=== PATIENT | female | born 1960 | race Caucasian/White ===

== ENCOUNTER 2016-07-17 21:12 | Inpatient (IN) | payer OTHER ==
[2016-07-17] MEDS ORDERED: IPRATROPIUM-ALBUTEROL 3 ML NEB INHALATION STA (21:18)
[2016-07-17] MEDS ORDERED: SODIUM CHLORIDE 0.9% 1,000 ML IV STA (21:18)
--- NOTE | 2016-07-17 21:21 | ED ---
General Adult HPI - General Chief complaint: Shortness of Breath Stated complaint: SOB Time Seen by Provider: 07/17/16 21:14 Source: patient, family, EMS, RN notes reviewed Mode of arrival: EMS Limitations: no limitations - History of Present Illness Initial comments: Patient is a pleasant 5-year-old female presenting to the emergency department with difficulty in breathing. Patient had an onset of symptoms was 2 week ago. Patient has had cough with some yellow sputum. Dyspnea increased cardioverted today. Symptoms are similar to previous COPD. Patient did have 2 treatments in route as well as Solu-Medrol. No chest pain. Patient has had subjective fevers however when checked it has not shown fever. No leg pain or leg swelling. - Related Data Home Medications Medication Instructions Recorded Confirmed Levothyroxine Sodium [Synthroid] 50 mcg PO DAILY 12/04/15 07/17/16 Albuterol Inhaler [Ventolin Hfa 2 puff INHALATION RT-Q4H PRN 07/17/16 07/17/16 Inhaler] Albuterol Nebulized [Ventolin 2.5 mg INHALATION RT-QID 07/17/16 07/17/16 Nebulized] Azithromycin [Zithromax Z-pack] See Taper PO DAILY 07/17/16 07/17/16 Budesonide [Pulmicort] 1 mg INHALATION RT-BID 07/17/16 07/17/16 Ipratropium Nebulized [Atrovent 0.5 mg INHALATION RT-QID 07/17/16 07/17/16 Nebulized] predniSONE 5 mg PO DAILY 07/17/16 07/17/16 predniSONE See Taper PO DAILY 07/17/16 07/17/16 Previous Rx's Medication Instructions Recorded ALPRAZolam [Xanax] 0.25 mg PO TID PRN #20 tab 12/06/15 Allergies Allergy/AdvReac Type Severity Reaction Status Date / Time amoxicillin AdvReac Unknown Verified 07/17/16 22:00 Childhood erythromycin base AdvReac Unknown Verified 07/17/16 22:00 Childhood Review of Systems ROS Statement: Those systems with pertinent positive or pertinent negative responses have been documented in the HPI. ROS Other: All systems not noted in ROS Statement are negative. Constitutional: Reports: fever (Subjective) Eyes: Denies: eye pain ENT: Denies: ear pain Respiratory: Reports: cough, dyspnea Cardiovascular: Denies: chest pain Endocrine: Reports: fatigue Gastrointestinal: Denies: abdominal pain Genitourinary: Denies: dysuria Musculoskeletal: Denies: back pain Skin: Denies: rash Neurological: Denies: weakness Past Medical History Past Medical History: COPD History of Any Multi-Drug Resistant Organisms: None Reported Past Surgical History: Appendectomy, Hysterectomy, Tonsillectomy Past Psychological History: No Psychological Hx Reported Smoking Status: Current every day smoker Past Alcohol Use History: None Reported Past Drug Use History: None Reported - Past Family History Father Family Medical History: Renal Disease General Exam Limitations: no limitations General appearance: alert Head exam: Present: atraumatic Eye exam: Present: normal appearance, PERRL ENT exam: Present: normal oropharynx Neck exam: Present: normal inspection Respiratory exam: Present: respiratory distress, wheezes, accessory muscle use Cardiovascular Exam: Present: tachycardia Expanded Peripheral pulses: 2+: Radial (R), Radial (L), Dorsalis Pedis (R), Dorsalis Pedis (L) GI/Abdominal exam: Present: soft. Absent: tenderness Extremities exam: Present: normal inspection. Absent: pedal edema, calf tenderness Neurological exam: Present: alert Psychiatric exam: Present: normal affect, normal mood Skin exam: Absent: rash Course Vital Signs 07/17/16 07/17/16 07/17/16 21:14 21:18 21:24 Temperature 98.2 F Pulse Rate 112 H 115 H Respiratory 26 H 24 24 Rate Blood Pressure 175/92 O2 Sat by Pulse 93 L 96 Oximetry 07/17/16 07/17/16 07/17/16 21:25 21:39 21:49 Temperature Pulse Rate 112 H 104 H 103 H Respiratory 24 20 Rate Blood Pressure 138/63 129/60 O2 Sat by Pulse 96 97 Oximetry 07/17/16 07/17/16 21:51 22:07 Temperature 98 F Pulse Rate 102 H 113 H Respiratory 24 Rate Blood Pressure 128/62 O2 Sat by Pulse 97 Oximetry EKG Findings - EKG Comments: EKG Findings:: Sinus tachycardia 113. NC 120. QRS 80. QT 324. QTC 444. Normal axis. Q wave in lead V1 and V2. No acute ST change. Medical Decision Making - Medical Decision Making Patient reexamined and improved. Patient is breathing comfortably on BiPAP. Patient does have continued decreased air exchange with mild wheezing. Case discussed in detail with practitioner Estefanía rankin, covering for Dr. Wheat, who will admit for Dr. Fleming. - Lab Data Result diagrams: 07/17/16 21:21 07/17/16 21:21 Lab Results 07/17/16 07/17/16 Range/Units 21:21 21:21 WBC 9.9 (3.8-10.6) k/uL RBC 4.53 (3.80-5.40) m/uL Hgb 14.7 (11.4-16.0) gm/dL Hct 45.3 (34.0-46.0) % MCV 100.0 (80.0-100.0) fL MCH 32.5 (25.0-35.0) pg MCHC 32.5 (31.0-37.0) g/dL RDW 13.1 (11.5-15.5) % Plt Count 337 (150-450) k/uL Neutrophils % 71 % Lymphocytes % 19 % Monocytes % 7 % Eosinophils % 0 % Basophils % 0 % Neutrophils # 7.1 (1.3-7.7) k/uL Lymphocytes # 1.9 (1.0-4.8) k/uL Monocytes # 0.7 (0-1.0) k/uL Eosinophils # 0.0 (0-0.7) k/uL Basophils # 0.0 (0-0.2) k/uL Sodium 144 (137-145) mmol/L Potassium 4.4 (3.5-5.1) mmol/L Chloride 106 (98-107) mmol/L Carbon Dioxide 28 (22-30) mmol/L Anion Gap 10 mmol/L BUN 12 (7-17) mg/dL Creatinine 0.60 (0.52-1.04) mg/dL Est GFR (MDRD) Af Amer >60 (>60 ml/min/1.73 sqM) Est GFR (MDRD) Non-Af >60 (>60 ml/min/1.73 sqM) Glucose 103 H (74-99) mg/dL Calcium 9.1 (8.4-10.2) mg/dL Total Bilirubin 0.3 (0.2-1.3) mg/dL AST 30 (14-36) U/L ALT 39 (9-52) U/L Alkaline Phosphatase 73 (38-126) U/L Total Protein 7.2 (6.3-8.2) g/dL Albumin 4.3 (3.5-5.0) g/dL - Radiology Data Radiology results: image reviewed (Chest x-ray shows no acute process) Critical Care Time Critical Care Time: Yes Total Critical Care Time: 33 Disposition Clinical Impression: Acute exacerbation of chronic obstructive airways disease, Acute respiratory failure Disposition: ADMITTED IP TO THIS [facility] Condition: Serious Time of Disposition: 22:32
[2016-07-17 21:30] LABS: Basophils % (A) 0 %; CH 32.6; CHCM 32.8; Eosinophils % (A) 0 %; HCT 45.3 % (34.0-46.0); HDW 2.15; HGB 14.7 gm/dL (11.4-16.0); Luc # (Auto) 0.26; Luc % (Auto) 3; Lymphocytes # (A) 1.9 k/uL (1.0-4.8); Lymphocytes % (A) 19 %; MCH 32.5 pg (25.0-35.0); MCHC 32.5 g/dL (31.0-37.0); Monocytes # (A) 0.7 k/uL (0-1.0); Monocytes % (A) 7 %; Neutrophils # (A) 7.1 k/uL (1.3-7.7); Neutrophils % (A) 71 %; RBC 4.53 m/uL (3.80-5.40); RDW 13.1 % (11.5-15.5); WBC 9.9 k/uL (3.8-10.6); WBC (Perox) 9.17
[2016-07-17 21:41] LABS: ALT 39 U/L (9-52); AST 30 U/L (14-36); Alkaline Phosphatase 73 U/L (38-126); Anion Gap 10 mmol/L; Blood Urea Nitrogen 12 mg/dL (7-17); Calcium 9.1 mg/dL (8.4-10.2); Carbon Dioxide 28 mmol/L (22-30); Chloride 106 mmol/L (98-107); Glucose 103 mg/dL (74-99); Non-African American GFR(MDRD) >60 (>60 ml/min/1.73 sqM); Potassium 4.4 mmol/L (3.5-5.1); Sodium 144 mmol/L (137-145); Total Bilirubin 0.3 mg/dL (0.2-1.3); Total Protein 7.2 g/dL (6.3-8.2)
--- NOTE | 2016-07-17 21:45 | XR ---
EXAMINATION TYPE: XR chest 1V portable DATE OF EXAM: 07/17/2016 9:37 PM COMPARISON: Prior chest x-ray January 20, 2016 HISTORY: Dyspnea TECHNIQUE: Single AP portable frontal upright view of the chest is obtained. FINDINGS: Moderate underlying emphysematous change is felt present. There is no focal air space opac ity, pleural effusion, or pneumothorax seen. The cardiac silhouette size is within normal limits. The osseous structures are somewhat demineralized. IMPRESSION: Underlying emphysematous change without acute pulmonary process.
[2016-07-17] MEDS: IPRATROPIUM-ALBUTEROL 3 ML NEB INHALATION PRN (23:53)
[2016-07-18] MEDS: methylPREDNISolone SOD SUCCI 125 MG/2 ML VIAL IV SCH ×4 (02:37→17:19)
[2016-07-18] MEDS: IPRATROPIUM-ALBUTEROL 3 ML NEB INHALATION PRN ×2 (03:21→23:55)
[2016-07-18] MEDS: SODIUM CHLORIDE 0.9% 1,000 ML IV SCH ×2 (06:41→12:12)
[2016-07-18] MEDS: IPRATROPIUM-ALBUTEROL 3 ML NEB INHALATION SCH ×4 (07:55→20:22)
[2016-07-18] MEDS ORDERED: INSULIN LISPRO (humaLOG) 300 UNIT/3 ML VIAL SQ ONE ×2 (09:03→21:34)
[2016-07-18] MEDS ORDERED: ACETAMINOPHEN TAB 325 MG TAB PO PRN (09:09)
[2016-07-18] MEDS: LEVOTHYROXINE 50 MCG TAB PO SCH (09:10)
[2016-07-18] MEDS: FAMOTIDINE 20 MG TAB PO SCH ×2 (09:10→20:03)
[2016-07-18] MEDS: HEPARIN SODIUM,PORCINE 5,000 UNIT/ML 1 ML VIAL SQ SCH ×2 (09:10→20:02)
[2016-07-18] MEDS: ALPRAZolam 0.25 MG TAB PO PRN ×2 (09:11→21:16)
[2016-07-18] MEDS: LEVOFLOXACIN 500 MG TAB PO SCH (09:40)
[2016-07-18] MEDS: IBUPROFEN 400 MG TAB PO PRN ×2 (09:41→20:02)
[2016-07-18 12:40] LABS: Glucose,Whole Blood 218 mg/dL (75-99)
[2016-07-18] MEDS: INSULIN LISPRO (humaLOG) 300 UNIT/3 ML VIAL SQ SCH ×3 (12:59→21:40)
[2016-07-18 13:48] LABS: Hemoglobin A1C 5.8 % (4.2-6.1)
--- NOTE | 2016-07-18 15:14 | P.HPIM ---
History of Present Illness H&P Date: 07/18/16 Chief Complaint: Shortness of breath Patient is a 55-year-old female, patient of Dr. Fleming in the outpatient setting, with medical history significant for COPD, asthma, and hypothyroidism. Patient states she's been dealing with bronchitis for the last couple weeks prior to admission and saw Dr. Fleming in the office on where she was placed on Zithromax. Patient states that over the last couple of days she has become increasingly short of breath despite using her inhalers. Patient presented to the emergency department with difficulty breathing. Patient was provided nebulized updrafts in route 2 as well as Solu-Medrol. Patient states she's been feeling hot but no recorded temperatures. Patient denies chills, nausea, vomiting, chest pain, abdominal pain, leg swelling, numbness or tingling, urinary frequency, dysuria, hematuria. Patient denies constipation or diarrhea. Chest x-ray and emergency department with evidence of underlying emphysematous change without acute pulmonary process. Patient was noted to be short of breath with tachypnea and hypertensive in the emergency department. Patient was placed on BiPAP and started on Levaquin. Patient was admitted to the medical floor with consult to Dr. Block from pulmonary service. Upon examination, patient is feeling better. Patient states she still gets short of breath with minimal activity but reports breathing a lot better than yesterday. Patient has mostly nonproductive cough. Denies chills, fevers, nausea, vomiting, chest pain, abdominal pain, leg pain. Patient is up ambulating to the bathroom. Urinating without difficulty. Patient is tolerating diet. Patient is currently on 2 L nasal cannula with oxygen saturation 95%. Past Medical History Past Medical History: Asthma, COPD, Thyroid Disorder History of Any Multi-Drug Resistant Organisms: None Reported Past Surgical History: Appendectomy, Hysterectomy, Tonsillectomy Additional Past Anesthesia/Blood Transfusion Reaction / Comment(s): Patient states she had problems with anesthesia in 1965, states ether was used and she had altered mental status. Past Psychological History: Anxiety Smoking Status: Current every day smoker Past Alcohol Use History: None Reported Past Drug Use History: None Reported - Past Family History Father Family Medical History: Renal Disease Mother Family Medical History: Congestive Heart Failure (CHF), Myocardial Infarction ( [place]) Medications and Allergies Home Medications Medication Instructions Recorded Confirmed Type Levothyroxine Sodium [Synthroid] 50 mcg PO DAILY 12/04/15 07/17/16 History Albuterol Inhaler [Ventolin Hfa 2 puff INHALATION RT-Q4H PRN 07/17/16 07/17/16 History Inhaler] Albuterol Nebulized [Ventolin 2.5 mg INHALATION RT-QID 07/17/16 07/17/16 History Nebulized] Azithromycin [Zithromax Z-pack] See Taper PO DAILY 07/17/16 07/17/16 History Budesonide [Pulmicort] 1 mg INHALATION RT-BID 07/17/16 07/17/16 History Ipratropium Nebulized [Atrovent 0.5 mg INHALATION RT-QID 07/17/16 07/17/16 History Nebulized] predniSONE 5 mg PO DAILY 07/17/16 07/17/16 History predniSONE See Taper PO DAILY 07/17/16 07/17/16 History Allergies Allergy/AdvReac Type Severity Reaction Status Date / Time amoxicillin AdvReac Unknown Verified 07/17/16 22:00 Childhood erythromycin base AdvReac Unknown Verified 07/17/16 22:00 Childhood Physical Exam Vitals: Vital Signs Temp Pulse Pulse Pulse Resp BP BP 07/18/16 11:39 100 07/18/16 11:28 104 H 07/18/16 08:10 100 07/18/16 08:00 88 07/18/16 07:55 100 07/18/16 07:00 97.2 F L 101 H 18 132/77 07/18/16 03:33 100 07/18/16 03:21 96 07/18/16 00:27 96.8 F L 108 H 20 07/18/16 00:09 88 07/17/16 23:54 96 07/17/16 23:10 97.6 F 109 H 20 122/59 BP Pulse Ox 07/18/16 11:39 07/18/16 11:28 07/18/16 08:10 07/18/16 08:00 07/18/16 07:55 95 07/18/16 07:00 94 L 07/18/16 03:33 07/18/16 03:21 07/18/16 00:27 123/78 94 L 07/18/16 00:09 07/17/16 23:54 94 L 07/17/16 23:10 97 Intake and Output 07/18/16 07/18/16 07/18/16 06:59 14:59 22:59 Intake Total 540 Balance 540 Intake: Oral 540 Other: Voiding Method Toilet Bedside Commode # Voids 1 1 # Bowel Movements 0 Weight 42.411 kg GENERAL: Pt awake and alert, thin, in no acute distress. HEAD: Atraumatic, normocephalic. EYES: Pupils equal, round, and reactive to light, extraocular movements intact, sclera anicteric, conjunctiva are normal. ENT: Oropharynx clear without exudates. Moist mucous membranes. NECK: Supple without lymphadenopathy or JVD. LUNGS: Breath sounds diminished to auscultation bilaterally. No wheezes, rales , or rhonchi. HEART: Heart S1, S2, no S3 or S4. Regular rate and rhythm. No murmurs, rubs or gallops. ABDOMEN: Soft, nontender, nondistended, normoactive bowel sounds. No guarding, no rebound. No masses or organomegaly appreciated. EXTREMITIES: 2+ peripheral pulses. No edema, clubbing or cyanosis. No calf tenderness. NEUROLOGICAL: Pt oriented x 3. Cranial nerves II through XII grossly intact. Strength and sensation grossly intact. PSYCH: Normal mood, normal affect. SKIN: Warm, dry, intact. Normal turgor. No rashes or lesions. Results CBC & Chem 7: 07/17/16 21:21 07/17/16 21:21 Labs: Abnormal Lab Results - Last 24 Hours (Table) 07/18/16 Range/Units 12:29 POC Glucose (mg/dL) 218 H (75-99) mg/dL Chest x-ray: report reviewed Thrombosis Risk Factor Assmnt - DVT/VTE Prophylaxis DVT/VTE Prophylaxis: Pharmacologic Prophylaxis ordered - Choose All That Apply Any of the Below Risk Factors Present?: Yes Each Factor Represents 1 point: Abnormal pulmonary function (COPD), Age 41-60 years Other Risk Factors: No Other congenital or acquired thrombophilia - If yes, enter type in comment: No Thrombosis Risk Factor Assessment Total Risk Factor Score: 2 Thrombosis Risk Factor Assessment Level: Low Risk Assessment and Plan Plan: Impression: 1. Exacerbation of COPD. 2. Acute hypoxic respiratory failure suspected secondary to exacerbation of COPD. 3. History of asthma, mild. 4. Hypothyroidism. 5. Anxiety, stable. 6. Nicotine dependence. Plan: Continue monitor patient. Continue supplemental oxygen to keep oxygen saturation greater than 92%. Continue nebulized updraft treatments, inhaled and IV steroids, antibiotics, and IV hydration. Continue GI and DVT prophylaxis. Her medications been reviewed and resumed. Continue to follow with pulmonary service. Repeat CBC and BMP in a.m. The above impression and plan have been discussed and directed by Dr Fleming. Albert HORN acting as scribe for Dr. Fleming.
[2016-07-18 15:21] VITALS: BMI 17.6
[2016-07-18 17:06] LABS: Glucose,Whole Blood 105 mg/dL (75-99)
--- NOTE | 2016-07-18 17:34 | P.CNPUL ---
History of Present Illness Consult date: 07/18/16 Requesting physician: Shar Fleming Reason for consult: COPD Chief complaint: Shortness of breath, cough, and wheezing. History of present illness: This is a 55-year-old female with history of severe end-stage COPD, usually sees Dr. Salinas in the office, patient is O2 dependent and she is maintained on prednisone for her underlying COPD. She saw her primary care physician recently with symptoms of cough and shortness of breath, and she was placed on Zithromax. Over the last couple of days, her pulmonary status seems to have deteriorated. Patient was using her nebulizers more frequently, she has been developing even shortness of breath after the use of her nebulizer. She has been experiencing more shortness of breath cough and wheezing. Presented to the ER, her chest x-ray showed no evidence of infiltrate. Patient was treated initially with BiPAP, and placed on Levaquin. At the time of my evaluation, the patient was already feeling a bit improved. I reviewed the list of her medications, and she seems to be on appropriate course of bronchodilators and steroids as well as antibiotics. I also reviewed the chest x-ray, no evidence of pneumonia noted. Patient denies any fever no chills no hemoptysis. No nausea no vomiting no abdominal pain no melena no hematemesis is no dysuria and no frequency no urgency. Her symptoms are mostly pulmonary in nature. Review of Systems 14 point review of systems were obtained, please refer to pertinent positives and negatives in HPI. Past Medical History Past Medical History: Asthma, COPD, Thyroid Disorder History of Any Multi-Drug Resistant Organisms: None Reported Past Surgical History: Appendectomy, Hysterectomy, Tonsillectomy Additional Past Anesthesia/Blood Transfusion Reaction / Comment(s): Patient states she had problems with anesthesia in 1965, states ether was used and she had altered mental status. Past Psychological History: Anxiety Smoking Status: Current every day smoker Past Alcohol Use History: None Reported Past Drug Use History: None Reported - Past Family History Father Family Medical History: Renal Disease Mother Family Medical History: Congestive Heart Failure (CHF), Myocardial Infarction ( [place]) Medications and Allergies Home Medications Medication Instructions Recorded Confirmed Type Levothyroxine Sodium [Synthroid] 50 mcg PO DAILY 12/04/15 07/17/16 History Albuterol Inhaler [Ventolin Hfa 2 puff INHALATION RT-Q4H PRN 07/17/16 07/17/16 History Inhaler] Albuterol Nebulized [Ventolin 2.5 mg INHALATION RT-QID 07/17/16 07/17/16 History Nebulized] Azithromycin [Zithromax Z-pack] See Taper PO DAILY 07/17/16 07/17/16 History Budesonide [Pulmicort] 1 mg INHALATION RT-BID 07/17/16 07/17/16 History Ipratropium Nebulized [Atrovent 0.5 mg INHALATION RT-QID 07/17/16 07/17/16 History Nebulized] predniSONE 5 mg PO DAILY 07/17/16 07/17/16 History predniSONE See Taper PO DAILY 07/17/16 07/17/16 History Allergies Allergy/AdvReac Type Severity Reaction Status Date / Time amoxicillin AdvReac Unknown Verified 07/17/16 22:00 Childhood erythromycin base AdvReac Unknown Verified 07/17/16 22:00 Childhood Physical Exam Vitals: Vital Signs Temp Pulse Pulse Pulse Pulse Resp BP 07/18/16 16:55 100 07/18/16 16:44 100 07/18/16 15:00 97.4 F L 107 H 18 07/18/16 11:39 100 07/18/16 11:28 104 H 07/18/16 08:10 100 07/18/16 08:00 88 07/18/16 07:55 100 07/18/16 07:00 97.2 F L 101 H 18 07/18/16 03:33 100 07/18/16 03:21 96 07/18/16 00:27 96.8 F L 108 H 20 07/18/16 00:09 88 07/17/16 23:54 96 07/17/16 23:10 97.6 F 109 H 20 122/59 BP BP BP Pulse Ox 07/18/16 16:55 07/18/16 16:44 07/18/16 15:00 150/85 93 L 07/18/16 11:39 07/18/16 11:28 07/18/16 08:10 07/18/16 08:00 07/18/16 07:55 95 07/18/16 07:00 132/77 94 L 07/18/16 03:33 07/18/16 03:21 07/18/16 00:27 123/78 94 L 07/18/16 00:09 07/17/16 23:54 94 L 07/17/16 23:10 97 Intake and Output 07/18/16 07/18/16 07/18/16 06:59 14:59 22:59 Intake Total 540 Balance 540 Intake: Oral 540 Other: Voiding Method Toilet Toilet Bedside Commode Bedside Commode # Voids 1 3 1 # Bowel Movements 0 Weight 42.411 kg 42.411 kg Patient Weight 07/19/16 06:59 Weight 42.411 kg GENERAL: Revealed a 55-year-old female in no form of respiratory distress. HEAD: Atraumatic, normocephalic. EYES: Pupils equal, round, and reactive to light, extraocular movements intact, sclera anicteric, conjunctiva are normal. ENT: Oropharynx clear without exudates. Moist mucous membranes. NECK: Supple without lymphadenopathy or JVD. LUNGS: Diminished breath sounds at the bases, minimal wheezing on forced expiratory maneuver was noted. HEART: Heart S1, S2, no gallops, no murmur. ABDOMEN: Soft, nontender, nondistended, normoactive bowel sounds. No guarding, no rebound. No masses or organomegaly appreciated. EXTREMITIES: 2+ peripheral pulses. No edema, clubbing or cyanosis. No calf tenderness. NEUROLOGICAL: No gross focal neurologic deficit. PSYCH: Normal mood, normal affect. SKIN: No rashes, no cyanosis. Results - Laboratory Findings CBC and BMP: 07/17/16 21:21 07/17/16 21:21 Abnormal lab findings: Abnormal Labs 07/18/16 07/18/16 12:29 17:01 POC Glucose (mg/dL) 218 H 105 H - Diagnostic Findings Chest x-ray: image reviewed (No evidence of active disease.) Assessment and Plan Plan: Impression: 1 acute hypoxic respiratory failure secondary to acute exacerbation of COPD. 2 multiple comorbidities including hypothyroidism, anxiety, nicotine dependence, Recommendation: Agree with the present course of bronchodilators and antibiotics , agree with the Xanax, consider discharge planning in the next 24 hours. Time with Patient: Greater than 30
[2016-07-18] MEDS: BUDESONIDE 1 MG/2 ML NEBU INHALATION SCH (20:20)
[2016-07-18 21:16] LABS: Glucose,Whole Blood 275 mg/dL (75-99)
[2016-07-19] MEDS: SODIUM CHLORIDE 0.9% 1,000 ML IV SCH ×2 (01:56→16:18)
[2016-07-19] MEDS: IPRATROPIUM-ALBUTEROL 3 ML NEB INHALATION PRN ×2 (04:34→23:56)
[2016-07-19] MEDS: ALPRAZolam 0.25 MG TAB PO PRN ×2 (05:03→12:35)
[2016-07-19] MEDS: methylPREDNISolone SOD SUCCI 125 MG/2 ML VIAL IV SCH ×3 (05:03→21:07)
[2016-07-19] MEDS: LEVOTHYROXINE 50 MCG TAB PO SCH (05:30)
[2016-07-19 07:03] LABS: Glucose,Whole Blood 120 mg/dL (75-99)
[2016-07-19] MEDS: INSULIN LISPRO (humaLOG) 300 UNIT/3 ML VIAL SQ SCH ×4 (07:35→21:12)
[2016-07-19] MEDS: IBUPROFEN 400 MG TAB PO PRN ×2 (08:27→21:53)
[2016-07-19] MEDS: IPRATROPIUM-ALBUTEROL 3 ML NEB INHALATION SCH ×4 (09:03→20:30)
[2016-07-19] MEDS: BUDESONIDE 1 MG/2 ML NEBU INHALATION SCH ×2 (09:03→20:29)
[2016-07-19] MEDS: HEPARIN SODIUM,PORCINE 5,000 UNIT/ML 1 ML VIAL SQ SCH ×2 (09:24→21:08)
[2016-07-19] MEDS: LEVOFLOXACIN 500 MG TAB PO SCH (09:24)
[2016-07-19] MEDS: FAMOTIDINE 20 MG TAB PO SCH ×2 (09:24→21:08)
[2016-07-19 12:05] LABS: Glucose,Whole Blood 163 mg/dL (75-99)
--- NOTE | 2016-07-19 15:08 | P.PN ---
Subjective Principal diagnosis: Acute exacerbation of severe, end-stage oxygen-dependent, steroid dependent chronic obstructive pulmonary disease This is a 55-year-old female with history of severe end-stage COPD, usually sees Dr. Salinas in the office, patient is O2 dependent and she is maintained on prednisone for her underlying COPD. She saw her primary care physician recently with symptoms of cough and shortness of breath, and she was placed on Zithromax. Over the last couple of days, her pulmonary status seems to have deteriorated. Patient was using her nebulizers more frequently, she has been developing even shortness of breath after the use of her nebulizer. She has been experiencing more shortness of breath cough and wheezing. Presented to the ER, her chest x-ray showed no evidence of infiltrate. Patient was treated initially with BiPAP, and placed on Levaquin. At the time of my evaluation, the patient was already feeling a bit improved. I reviewed the list of her medications, and she seems to be on appropriate course of bronchodilators and steroids as well as antibiotics. I also reviewed the chest x-ray, no evidence of pneumonia noted. Patient denies any fever no chills no hemoptysis. No nausea no vomiting no abdominal pain no melena no hematemesis is no dysuria and no frequency no urgency. Her symptoms are mostly pulmonary in nature. The patient is seen again today 07/19/2016 in follow-up on the regular medical floor. She is awake and alert in no acute distress. She did have an episode of anxiety which triggered her increasing shortness of breath, wheezing earlier this morning. Currently however she is doing quite well she is calm and denies any worsening shortness of breath. She is quite dyspneic on minimal exertion. Slightly tachycardic. She has a dry nonproductive cough. Objective - Vital Signs Vital signs: Vital Signs Temp 98.0 F 07/19/16 07:00 Pulse 104 H 07/19/16 13:06 Resp 26 H 07/19/16 09:40 BP 151/92 07/19/16 09:40 Pulse Ox 96 07/19/16 09:40 Intake & Output 07/18/16 07/19/16 07/19/16 18:59 06:59 18:59 Intake Total 540 500 Balance 540 500 Weight 42.411 kg Intake: Oral 540 500 Other: Voiding Method Toilet Toilet Bedside Commode Bedside Commode # Voids 1 2 - Exam GENERAL EXAM: Frail, cachectic. Alert, comfortable in no apparent distress. HEAD: Normocephalic. EYES: Normal reaction of pupils, equal size. NOSE: Clear with pink turbinates. THROAT: No erythema or exudates. NECK: No masses, no JVD. CHEST: No chest wall deformity. LUNGS: Equal air entry with bilateral end expiratory wheeze. Diminished throughout. CVS: S1 and S2 normal with no audible murmurs, regular rhythm. ABDOMEN: No hepatosplenomegaly, normal bowel sounds, no guarding or rigidity. Extremities: There is no peripheral edema. No clubbing, no cyanosis. Peripheral pulses are intact. - Labs CBC & Chem 7: 07/17/16 21:21 07/17/16 21:21 Labs: Abnormal Lab Results - Last 24 Hours (Table) 07/18/16 07/18/16 07/19/16 Range/Units 17:01 21:12 07:02 POC Glucose (mg/dL) 105 H 275 H 120 H (75-99) mg/dL 07/19/16 Range/Units 12:03 POC Glucose (mg/dL) 163 H (75-99) mg/dL Assessment and Plan Plan: Impression: #1 Acute exacerbation of severe, oxygen-dependent, steroid-dependent chronic obstructive pulmonary disease. #2 Acute on chronic hypoxic respiratory failure secondary to above. #3 Chronic and ongoing tobacco dependence. #4 Hypothyroidism. #5 Anxiety. Plan: The patient was seen and evaluated by Dr. Block. We will continue with her current medications including Xanax 0.25 mg 3 times a day. She is again educated regarding the importance of complete smoking cessation. We will increase her activity as tolerated. We'll continue to follow. Hopefully possible discharge in the next 24-48 hours.
--- NOTE | 2016-07-19 16:17 | P.PN ---
Subjective Patient is a 55-year-old female, patient of Dr. Fleming in the outpatient setting, with medical history significant for COPD, asthma, and hypothyroidism. Patient states she's been dealing with bronchitis for the last couple weeks prior to admission and saw Dr. Fleming in the office on where she was placed on Zithromax. Patient states that over the last couple of days she has become increasingly short of breath despite using her inhalers. Patient presented to the emergency department with difficulty breathing. Patient was provided nebulized updrafts in route 2 as well as Solu-Medrol. Patient states she's been feeling hot but no recorded temperatures. Patient denies chills, nausea, vomiting, chest pain, abdominal pain, leg swelling, numbness or tingling, urinary frequency, dysuria, hematuria. Patient denies constipation or diarrhea. Chest x-ray and emergency department with evidence of underlying emphysematous change without acute pulmonary process. Patient was noted to be short of breath with tachypnea and hypertensive in the emergency department. Patient was placed on BiPAP and started on Levaquin. Patient was admitted to the medical floor with consult to Dr. Block from pulmonary service. Upon examination, patient is feeling better. Patient reports an episode of anxiety after receiving a nebulized updraft treatment this morning. Patient states she is doing better now. Patient states she still gets short of breath with minimal activity but reports breathing is slightly better than yesterday. Patient has mostly nonproductive cough. Denies chills, fevers, nausea, vomiting , chest pain, abdominal pain, leg pain. Patient is up ambulating to the bathroom. Urinating without difficulty. Patient is tolerating diet. Patient is currently on 3 L nasal cannula with oxygen saturation 95%. Objective - Vital Signs Vital signs: Vital Signs Temp 97.6 F 07/19/16 15:00 Pulse 108 H 07/19/16 15:00 Resp 20 07/19/16 15:00 BP 148/70 07/19/16 15:00 Pulse Ox 90 L 07/19/16 15:00 Intake & Output 07/18/16 07/19/16 07/19/16 18:59 06:59 18:59 Intake Total 540 500 Balance 540 500 Weight 42.411 kg Intake: Oral 540 500 Other: Voiding Method Toilet Toilet Bedside Commode Bedside Commode # Voids 1 2 3 - Exam GENERAL: Pt awake and alert, thin, in no acute distress. HEAD: Atraumatic, normocephalic. EYES: Pupils equal, round, and reactive to light, extraocular movements intact, sclera anicteric, conjunctiva are normal. ENT: Oropharynx clear without exudates. Moist mucous membranes. NECK: Supple without lymphadenopathy or JVD. LUNGS: Breath sounds diminished to auscultation bilaterally. No wheezes, rales , or rhonchi. HEART: Heart S1, S2, no S3 or S4. Regular rate and rhythm. No murmurs, rubs or gallops. ABDOMEN: Soft, nontender, nondistended, normoactive bowel sounds. No guarding, no rebound. No masses or organomegaly appreciated. EXTREMITIES: 2+ peripheral pulses. No edema, clubbing or cyanosis. No calf tenderness. NEUROLOGICAL: Pt oriented x 3. Cranial nerves II through XII grossly intact. Strength and sensation grossly intact. PSYCH: Normal mood, normal affect. SKIN: Warm, dry, intact. Normal turgor. No rashes or lesions. - Labs CBC & Chem 7: 07/17/16 21:21 07/17/16 21:21 Labs: Abnormal Lab Results - Last 24 Hours (Table) 07/18/16 07/18/16 07/19/16 Range/Units 17:01 21:12 07:02 POC Glucose (mg/dL) 105 H 275 H 120 H (75-99) mg/dL 07/19/16 Range/Units 12:03 POC Glucose (mg/dL) 163 H (75-99) mg/dL Assessment and Plan Plan: Impression: 1. Acute exacerbation of severe, oxygen dependent, steroid dependent chronic obstructive pulmonary disease. 2. Acute hypoxic respiratory failure suspected secondary to exacerbation of COPD. 3. History of asthma, mild. 4. Hypothyroidism. 5. Anxiety, stable. 6. Nicotine dependence. Plan: Continue monitor patient. Continue supplemental oxygen to keep oxygen saturation greater than 92%. Continue nebulized updraft treatments, inhaled and IV steroids, antibiotics, and IV hydration. Continue Xanax 0.25 mg 3 times a day. Smoking cessation encouraged. Continue GI and DVT prophylaxis. Continue to follow with pulmonary service. Repeat CBC and BMP in a.m. The above impression and plan have been discussed and directed by Dr James. Albert MOY-Dejuan acting as scribe for Dr. Fleming.
[2016-07-19] MEDS: ALPRAZolam 0.25 MG TAB PO SCH ×2 (17:01→21:07)
[2016-07-19 17:07] LABS: Glucose,Whole Blood 128 mg/dL (75-99)
[2016-07-19 20:53] LABS: Glucose,Whole Blood 223 mg/dL (75-99)
[2016-07-20] MEDS: IPRATROPIUM-ALBUTEROL 3 ML NEB INHALATION PRN (03:37)
[2016-07-20] MEDS: SODIUM CHLORIDE 0.9% 1,000 ML IV SCH (05:05)
[2016-07-20] MEDS: LEVOTHYROXINE 50 MCG TAB PO SCH (06:03)
[2016-07-20 06:50] LABS: Glucose,Whole Blood 136 mg/dL (75-99)
[2016-07-20] MEDS: IPRATROPIUM-ALBUTEROL 3 ML NEB INHALATION SCH ×4 (08:06→21:41)
[2016-07-20] MEDS: BUDESONIDE 1 MG/2 ML NEBU INHALATION SCH ×2 (08:06→21:41)
[2016-07-20] MEDS: ALPRAZolam 0.25 MG TAB PO SCH (09:59)
[2016-07-20] MEDS: methylPREDNISolone SOD SUCCI 125 MG/2 ML VIAL IV SCH (09:59)
[2016-07-20] MEDS: LEVOFLOXACIN 500 MG TAB PO SCH (09:59)
[2016-07-20] MEDS: HEPARIN SODIUM,PORCINE 5,000 UNIT/ML 1 ML VIAL SQ SCH ×2 (09:59→21:51)
[2016-07-20] MEDS: FAMOTIDINE 20 MG TAB PO SCH ×2 (09:59→21:51)
[2016-07-20] MEDS: INSULIN LISPRO (humaLOG) 300 UNIT/3 ML VIAL SQ SCH ×4 (10:00→21:50)
[2016-07-20 12:38] LABS: Glucose,Whole Blood 124 mg/dL (75-99)
--- NOTE | 2016-07-20 14:44 | P.PN ---
Subjective Principal diagnosis: Acute exacerbation of severe, end-stage oxygen-dependent, steroid dependent chronic obstructive pulmonary disease This is a 55-year-old female with history of severe end-stage COPD, usually sees Dr. Salinas in the office, patient is O2 dependent and she is maintained on prednisone for her underlying COPD. She saw her primary care physician recently with symptoms of cough and shortness of breath, and she was placed on Zithromax. Over the last couple of days, her pulmonary status seems to have deteriorated. Patient was using her nebulizers more frequently, she has been developing even shortness of breath after the use of her nebulizer. She has been experiencing more shortness of breath cough and wheezing. Presented to the ER, her chest x-ray showed no evidence of infiltrate. Patient was treated initially with BiPAP, and placed on Levaquin. At the time of my evaluation, the patient was already feeling a bit improved. I reviewed the list of her medications, and she seems to be on appropriate course of bronchodilators and steroids as well as antibiotics. I also reviewed the chest x-ray, no evidence of pneumonia noted. Patient denies any fever no chills no hemoptysis. No nausea no vomiting no abdominal pain no melena no hematemesis is no dysuria and no frequency no urgency. Her symptoms are mostly pulmonary in nature. The patient is seen again today 07/19/2016 in follow-up on the regular medical floor. She is awake and alert in no acute distress. She did have an episode of anxiety which triggered her increasing shortness of breath, wheezing earlier this morning. Currently however she is doing quite well she is calm and denies any worsening shortness of breath. She is quite dyspneic on minimal exertion. Slightly tachycardic. She has a dry nonproductive cough. The patient is seen again today 07/20/2016 in follow-up. She is awake and alert in no acute distress. She is anxious to go home. She does have occasional episodes of anxiety which triggers her increasing shortness of breath. She remains on Xanax. Objective - Vital Signs Vital signs: Vital Signs Temp 97.6 F 07/20/16 07:00 Pulse 100 07/20/16 12:15 Resp 24 07/20/16 07:00 BP 138/68 07/20/16 07:00 Pulse Ox 94 L 07/20/16 08:06 Intake & Output 07/19/16 07/20/16 07/20/16 18:59 06:59 18:59 Intake Total 300 450 Balance 300 450 Intake: Intake, IV Titration 450 Amount Sodium Chloride 0.9% 1, 450 000 ml @ 75 mls/hr IV . [id number] [facility] Rx#:[id number] Oral 300 Other: Voiding Method Toilet Bedside Commode # Voids 3 1 # Bowel Movements 1 - Exam GENERAL EXAM: Frail, cachectic. Alert, comfortable in no apparent distress. HEAD: Normocephalic. EYES: Normal reaction of pupils, equal size. NOSE: Clear with pink turbinates. THROAT: No erythema or exudates. NECK: No masses, no JVD. CHEST: No chest wall deformity. LUNGS: Equal air entry with bilateral end expiratory wheeze. Diminished throughout. CVS: S1 and S2 normal with no audible murmurs, regular rhythm. ABDOMEN: No hepatosplenomegaly, normal bowel sounds, no guarding or rigidity. Extremities: There is no peripheral edema. No clubbing, no cyanosis. Peripheral pulses are intact. - Labs CBC & Chem 7: 07/17/16 21:21 07/17/16 21:21 Labs: Abnormal Lab Results - Last 24 Hours (Table) 07/19/16 07/19/16 07/20/16 Range/Units 17:05 20:49 06:49 POC Glucose (mg/dL) 128 H 223 H 136 H (75-99) mg/dL 07/20/16 Range/Units 12:37 POC Glucose (mg/dL) 124 H (75-99) mg/dL Assessment and Plan Plan: Impression: #1 Acute exacerbation of severe, oxygen-dependent, steroid-dependent chronic obstructive pulmonary disease. #2 Acute on chronic hypoxic respiratory failure secondary to above. #3 Chronic and ongoing tobacco dependence. #4 Hypothyroidism. #5 Anxiety. Plan: The patient was seen and evaluated by Dr. Block. We will continue with her current medications including Xanax 3 times a day. She is again educated regarding the importance of complete smoking cessation. She is cleared for discharge from pulmonary standpoint. She'll be on a prednisone taper, completed her course of Levaquin. Continue her home bronchodilators and maintenance medications. She should have a follow-up in our office in 1 week's time. She and her are both encouraged to call sooner if any recurrence of symptoms or other questions or concerns.
--- NOTE | 2016-07-20 16:13 | P.PN ---
Subjective Patient is a 55-year-old female, patient of Dr. Fleming in the outpatient setting, with medical history significant for COPD, asthma, and hypothyroidism. Patient states she's been dealing with bronchitis for the last couple weeks prior to admission and saw Dr. Fleming in the office on where she was placed on Zithromax. Patient states that over the last couple of days she has become increasingly short of breath despite using her inhalers. Patient presented to the emergency department with difficulty breathing. Patient was provided nebulized updrafts in route 2 as well as Solu-Medrol. Patient states she's been feeling hot but no recorded temperatures. Patient denies chills, nausea, vomiting, chest pain, abdominal pain, leg swelling, numbness or tingling, urinary frequency, dysuria, hematuria. Patient denies constipation or diarrhea. Chest x-ray and emergency department with evidence of underlying emphysematous change without acute pulmonary process. Patient was noted to be short of breath with tachypnea and hypertensive in the emergency department. Patient was placed on BiPAP and started on Levaquin. Patient was admitted to the medical floor with consult to Dr. Block from pulmonary service. Upon examination, patient is sitting at the side of the bed reporting her breathing hasn't improved since yesterday. Patient states that after she got steroids this morning she had another episode of anxiety and had a difficult time breathing. Patient complains of mostly nonproductive cough. Patient states she gets short of breath with minimal exertion. Patient is requesting an increase in anti-anxiety medication. Denies chills, fevers, nausea, vomiting , chest pain, abdominal pain, or leg pain. Urinating without difficulty. Patient reports poor appetite. Patient is currently on 3 L nasal cannula with oxygen saturation 95%. Objective - Vital Signs Vital signs: Vital Signs Temp 97.6 F 07/20/16 07:00 Pulse 102 H 07/20/16 15:52 Resp 24 07/20/16 07:00 BP 138/68 07/20/16 07:00 Pulse Ox 94 L 07/20/16 15:38 Intake & Output 07/19/16 07/20/16 07/20/16 18:59 06:59 18:59 Intake Total 300 450 Balance 300 450 Intake: Intake, IV Titration 450 Amount Sodium Chloride 0.9% 1, 450 000 ml @ 75 mls/hr IV . [id number] [facility] Rx#:[id number] Oral 300 Other: Voiding Method Toilet Bedside Commode # Voids 3 1 # Bowel Movements 1 - Exam GENERAL: Pt awake and alert, thin, in no acute distress. HEAD: Atraumatic, normocephalic. EYES: Pupils equal, round, and reactive to light, extraocular movements intact, sclera anicteric, conjunctiva are normal. ENT: Oropharynx clear without exudates. Moist mucous membranes. NECK: Supple without lymphadenopathy or JVD. LUNGS: Breath sounds diminished to auscultation bilaterally. No wheezes, rales , or rhonchi. HEART: Heart S1, S2, no S3 or S4. Regular rate and rhythm. No murmurs, rubs or gallops. ABDOMEN: Soft, nontender, nondistended, normoactive bowel sounds. No guarding, no rebound. No masses or organomegaly appreciated. EXTREMITIES: 2+ peripheral pulses. No edema, clubbing or cyanosis. No calf tenderness. NEUROLOGICAL: Pt oriented x 3. Cranial nerves II through XII grossly intact. Strength and sensation grossly intact. PSYCH: Normal mood, normal affect. SKIN: Warm, dry, intact. Normal turgor. No rashes or lesions. - Labs CBC & Chem 7: 07/17/16 21:21 07/17/16 21:21 Labs: Abnormal Lab Results - Last 24 Hours (Table) 07/19/16 07/19/16 07/20/16 Range/Units 17:05 20:49 06:49 POC Glucose (mg/dL) 128 H 223 H 136 H (75-99) mg/dL 07/20/16 Range/Units 12:37 POC Glucose (mg/dL) 124 H (75-99) mg/dL Assessment and Plan Plan: Impression: 1. Acute exacerbation of severe, oxygen dependent, steroid dependent chronic obstructive pulmonary disease. 2. Acute hypoxic respiratory failure suspected secondary to exacerbation of COPD. 3. History of asthma, mild. 4. Hypothyroidism. 5. Anxiety. 6. Nicotine dependence. Plan: Continue monitor patient. Continue supplemental oxygen to keep oxygen saturation greater than 92%. Continue nebulized updraft treatments, inhaled and oral steroids, antibiotics, and IV hydration. Continue Xanax 0.25 mg 3 times a day as needed. Smoking cessation encouraged. Continue GI and DVT prophylaxis. Continue to follow with pulmonary service. The above impression and plan have been discussed and directed by Dr Fleming. Albert HORN acting as scribe for Dr. Fleming.
[2016-07-20] MEDS: ALPRAZolam 0.5 MG TAB PO SCH ×2 (16:19→21:51)
[2016-07-20 17:22] LABS: Glucose,Whole Blood 136 mg/dL (75-99)
[2016-07-20 20:45] LABS: Glucose,Whole Blood 176 mg/dL (75-99)
[2016-07-21] MEDS: IBUPROFEN 400 MG TAB PO PRN (02:47)
[2016-07-21] MEDS: IPRATROPIUM-ALBUTEROL 3 ML NEB INHALATION PRN (03:20)
[2016-07-21] MEDS: LEVOTHYROXINE 50 MCG TAB PO SCH (05:57)
[2016-07-21 06:57] LABS: Glucose,Whole Blood 82 mg/dL (75-99)
[2016-07-21] MEDS: BUDESONIDE 1 MG/2 ML NEBU INHALATION SCH (07:22)
[2016-07-21] MEDS: IPRATROPIUM-ALBUTEROL 3 ML NEB INHALATION SCH (07:22)
[2016-07-21 07:33] VITALS: BP 123/76; RESP 16; TEMP 97.2
[2016-07-21 07:34] VITALS: PULSE 90
[2016-07-21] MEDS: INSULIN LISPRO (humaLOG) 300 UNIT/3 ML VIAL SQ SCH (08:10)
[2016-07-21] MEDS: HEPARIN SODIUM,PORCINE 5,000 UNIT/ML 1 ML VIAL SQ SCH (08:12)
[2016-07-21] MEDS: ALPRAZolam 0.5 MG TAB PO SCH (08:12)
[2016-07-21] MEDS: FAMOTIDINE 20 MG TAB PO SCH (08:12)
[2016-07-21] MEDS: LEVOFLOXACIN 500 MG TAB PO SCH (08:12)
[2016-07-21] MEDS ORDERED: predniSONE 20 MG TAB PO SCH (09:00)
--- NOTE | 2016-07-21 16:03 | P.DS ---
Providers Date of admission: 07/17/16 22:32 Expected date of discharge: 07/21/16 Attending physician: Shar Fleming Consults: Dr. Block, pulmonary service Primary care physician: Shar Fleming [facility] Course: Patient is a 55-year-old female, patient of Dr. Fleming in the outpatient setting, with medical history significant for COPD, asthma, and hypothyroidism. Patient states she's been dealing with bronchitis for the last couple weeks prior to admission and saw Dr. Fleming in the office on where she was placed on Zithromax. Patient states that over the last couple of days she has become increasingly short of breath despite using her inhalers. Patient presented to the emergency department with difficulty breathing. Patient was provided nebulized updrafts in route 2 as well as Solu-Medrol. Chest x-ray in the emergency department with evidence of underlying emphysematous change without acute pulmonary process. Patient was noted to be short of breath with tachypnea and hypertensive in the emergency department. Patient was placed on BiPAP and started on Levaquin. Patient was admitted to the medical floor with consult to Dr. Block from pulmonary service. Patient improved significantly with supplemental oxygen, steroids, anxiolytics, nebulized updraft treatments, and steroids. Patient was felt stable for discharge to home with home care. Patient provided follow-up appointments prior to discharge. Discharge diagnoses: 1. Acute exacerbation of severe, oxygen dependent, steroid dependent chronic obstructive pulmonary disease. 2. Acute hypoxic respiratory failure suspected secondary to exacerbation of COPD. 3. History of asthma, mild. 4. Hypothyroidism. 5. Anxiety. 6. Nicotine dependence. The above impression and plan have been discussed and directed by Dr. Fleming. Albert HORN acting as scribe for Dr. Fleming. Pertinent Studies: Chest x-ray; EKG Patient Condition at Discharge: Stable Plan - Discharge Summary New Discharge Prescriptions: ALPRAZolam [Xanax] 0.5 mg PO TID #21 tab Levofloxacin [Levaquin] 500 mg PO DAILY #3 tab predniSONE 0 mg PO DIRECTED #30 tab Discharge Medication List Levothyroxine Sodium [Synthroid] 50 mcg PO DAILY 12/04/15 [History] Albuterol Inhaler [Ventolin Hfa Inhaler] 2 puff INHALATION RT-Q4H PRN 07/17/16 [ History] Albuterol Nebulized [Ventolin Nebulized] 2.5 mg INHALATION RT-QID 07/17/16 [ History] Budesonide [Pulmicort] 1 mg INHALATION RT-BID 07/17/16 [History] Ipratropium Nebulized [Atrovent Nebulized] 0.5 mg INHALATION RT-QID 07/17/16 [ History] ALPRAZolam [Xanax] 0.5 mg PO TID #21 tab 07/21/16 [Rx] Ibuprofen [Motrin] 400 mg PO Q6HR PRN #0 tab 07/21/16 [Rx] Levofloxacin [Levaquin] 500 mg PO DAILY #3 tab 07/21/16 [Rx] predniSONE 0 mg PO DIRECTED #30 tab 07/21/16 [Rx] Follow up Appointment(s)/Referral(s): Shar Fleming DO [Primary Care Provider] - 07/25/16 10:00 am Yuval Salinas DO [Doctor of Osteopathic Medicine] - 08/01/16 1:30 pm [facility] Visiting Nurse, [NON-STAFF] - 1 Week Patient Instructions/Handouts: COPD (Chronic Obstructive Pulmonary Disease) (DC ) Activity/Diet/Wound Care/Special Instructions: No smoking, cessation information provided . Regular diet. Oxygen via nasal cannlula 2 Liters Discharge Disposition: HOME WITH HOME HEALTH SERVICES
--- NOTE | 2016-07-26 16:13 | CDI ---
In responding to this query, please exercise your independent professional judgment. The [facility] Coding Staff and Clinical Documentation Specialists appreciate your assistance in clarifying documentation, maintaining compliance with coding guidelines, accurately documenting patients condition and capturing severity of illness. The fact that a question is asked does not imply that any particular answer is desired or expected. Communication forms are a method of clarifying documentation and are not made part of the Legal Health Record. Thank you in advance for your clarification. Last Revision, May 2015 Corby Velásquez [address] [facility] Serviceser[place] [address] Documentation Clarification Form Date: 07/26/2016 4:01:00 PM From: Valarie Renee [facility] & Ratna Wong, Can Worker & [employer] = [phone] Admit Date: 07/17/2016 10:32:00 PM Patient Name: Lauren Levy Visit Number: [id number] Discharge Date: 07-21-16 SETH GallegoC Asthma is documented in the Discharge Summary as "history of mild asthma". Please specify, if possible specificity of asthma from choices and clinical information below: Patient history/risk factors: Home O2, anxiety, COPD exacerbation, acute hypoxic respiratory failure, history of bronchitis, hypertension, smoker, hypothyroidism. Radiology: CXR states "Underlying emphysematous change without acute pulmonary process" Vital Signs: RR = 26 on 07-17, 20 on 5-1 and 26 on 5--17. Pulse ox 93% on 07-17 , 93% on -, 90% on 5-2 and 93% on 07-20-17. Other Clinical Indicators: BIPAP used on 07-17 from [id number], otherwise oxygen via nc at 3 liters. Treatment: Duonebs, CXR Medication: Pulmicort, Pepcid, Solu-medrol, Levaquin. Consults: Pulmonology In your professional opinion, can you please further specify the following, if known? With Acute Exacerbation Status asthmaticus Acute lower respiratory infection COPD (specify with or without exacerbation) Chronic obstructive bronchitis Other, please specify Unable to determine Severity Mild intermittent Mild persistent Moderate persistent Severe persistent Other, please specify ____ Unable to determine Form or Type Cough variant Childhood Exercise induced bronchospasm Extrinsic allergic Idiosyncratic Intrinsic nonallergic Late-onset Mixed Other, please specify Unable to determine Please document in your progress notes and discharge summary in order to capture severity of illness and risk of mortality. Include clinical findings that support your diagnosis. FYI: Press F11 to launch patient chart. Place X here if this finding has no clinical significance, is not applicable or if you are not able to provide any additional documentation. MTDD
== END 2016-07-21 09:52 | disposition home health service (06) | DRG 189 ==
LOC: EC 21:12 → 4MS4W 22:32
PROVIDERS: ADMIT Family Medicine; ATTEND Family Medicine
DX: J96.21 Acute and chronic respiratory failure with hypoxia (principal); J44.1 Chronic obstructive pulmonary disease with (acute) exacerbation; Z99.81 Dependence on supplemental oxygen; E03.9 Hypothyroidism, unspecified; F41.9 Anxiety disorder, unspecified; I10 Essential (primary) hypertension; J45.909 Unspecified asthma, uncomplicated; R00.0 Tachycardia, unspecified; F17.200 Nicotine dependence, unspecified, uncomplicated; Z88.1 Allergy status to other antibiotic agents; Z88.0 Allergy status to penicillin; Z86.19 Personal history of other infectious and parasitic diseases; Z87.09 Personal history of other diseases of the respiratory system; Z71.6 Tobacco abuse counseling; Z71.3 Dietary counseling and surveillance; Z79.52 Long term (current) use of systemic steroids; Z82.49 Family history of ischemic heart disease and other diseases of the circulatory system; Z79.51 Long term (current) use of inhaled steroids; Z79.899 Other long term (current) drug therapy; Z90.49 Acquired absence of other specified parts of digestive tract; Z90.710 Acquired absence of both cervix and uterus; Z84.1 Family history of disorders of kidney and ureter
CPT/HCPCS: 36415; 71010; 80053; 83036; 85025; 93005; 94640; 94760; 99291

== ENCOUNTER → 2017-07-19 | Outpatient (CLI) | payer OTHER ==
--- NOTE | 2017-07-19 14:55 | CT ---
EXAMINATION TYPE: CT abdomen pelvis w con DATE OF EXAM: 07/19/2017 COMPARISON: 07/15/2013 HISTORY: Generalized pain and bloating with shortness of breath CT DLP: 303.3 mGycm CONTRAST: CT scan of the abdomen and pelvis is performed with Oral Contrast and with IV Contrast, patient injec syeda with 100 mL of Isovue 300. FINDINGS: LUNG BASES-: No visible nodule. No infiltrate. LIVER/GB: No calcified gallstones. No space occupying hepatic lesion. Biliary tree is of normal ca liber. PANCREAS: No inflammation. No distinct mass. SPLEEN: No splenic enlargement. No lesion seen. ADRENALS: No nodule. No thickening. KIDNEYS/BLADDER: No hydronephrosis. No nephrolithiasis. No distinct renal mass. Urinary bladder g rossly unremarkable. BOWEL: Normal appendix. Normal bowel caliber. No inflammation. There is moderate fecal stasis noted . GENITAL ORGANS: Hysterectomy changes. LYMPH NODES: No greater than 1cm abdominal or pelvic lymph nodes are appreciated. AORTA: No significant abnormality. OSSEOUS STRUCTURES: No significant abnormality is seen. OTHER: No significant additional abnormality is seen. IMPRESSION: 1. Moderate fecal stasis. Otherwise unremarkable study.
== END ==
LOC: RADCTMAIN 12:18
PROVIDERS: ATTEND Family Medicine
DX: K42.9 Umbilical hernia without obstruction or gangrene (principal); K57.92 Diverticulitis of intestine, part unspecified, without perforation or abscess without bleeding
CPT/HCPCS: 74177; Q9967

== ENCOUNTER → 2017-08-30 | Outpatient (CLI) | payer OTHER ==
[2017-08-30 10:28] LABS: Basophils % (A) 1 %; Eosinophils # (A) 0.2 k/uL (0-0.7); Eosinophils % (A) 3 %; HGB 14.9 gm/dL (11.4-16.0); Lymphocytes # (A) 2.2 k/uL (1.0-4.8); Lymphocytes % (A) 27 %; MCH 31.6 pg (25.0-35.0); MCHC 32.4 g/dL (31.0-37.0); MCV 97.5 fL (80.0-100.0); Mean Platelet Volume 7.6; Monocytes # (A) 0.4 k/uL (0-1.0); Monocytes % (A) 5 %; Neutrophils # (A) 5.2 k/uL (1.3-7.7); Neutrophils % (A) 64 %; Platelet Count 288 k/uL (150-450); RBC 4.72 m/uL (3.80-5.40); RDW 13.4 % (11.5-15.5); WBC 8.2 k/uL (3.8-10.6)
[2017-08-30 10:42] LABS: ALT 33 U/L (9-52); AST 26 U/L (14-36); Albumin 4.4 g/dL (3.5-5.0); Alkaline Phosphatase 85 U/L (38-126); Anion Gap 11 mmol/L; Blood Urea Nitrogen 16 mg/dL (7-17); Calcium 9.9 mg/dL (8.4-10.2); Carbon Dioxide 31 mmol/L (22-30); Chloride 102 mmol/L (98-107); Cholesterol 266 mg/dL (<200); Glucose 89 mg/dL (74-99); HDL Cholesterol 68 mg/dL (40-60); LDL Cholesterol,Calculated 176 mg/dL (0-99); Sodium 144 mmol/L (137-145); Total Bilirubin 0.5 mg/dL (0.2-1.3); Total Protein 6.8 g/dL (6.3-8.2); Triglycerides 111 mg/dL (<150)
[2017-08-30 16:33] LABS: DHEA Sulfate 12.6 ug/dL (26.0-430.0)
[2017-08-30 16:36] LABS: Insulin Level 6.2 mIU/mL (3.0-25.0)
[2017-08-30 17:04] LABS: Hepatitis B Core IgM Non-Reactive (Non-Reactive); Hepatitis C IgG Antibody Non-Reactive (Non-Reactive)
[2017-08-30 17:34] LABS: HIV AB P24 Non-Reactive (Non-Reactive); HIV P24 AG Non-Reactive (Non-Reactive)
[2017-08-30 17:51] LABS: Progesterone <0.2 ng/mL
== END | disposition home or self-care (01) ==
LOC: LABWHC1 08:56
PROVIDERS: ATTEND Legal Medicine
DX: Z01.812 Encounter for preprocedural laboratory examination (principal); E34.9 Endocrine disorder, unspecified; E03.9 Hypothyroidism, unspecified; E55.9 Vitamin D deficiency, unspecified; E78.2 Mixed hyperlipidemia; E28.39 Other primary ovarian failure; Z13.220 Encounter for screening for lipoid disorders
CPT/HCPCS: 36415; 80053; 80061; 82306; 82533; 82627; 82670; 82728; 83525; 84144; 84270; 84402; 84443; 84481; 85025; 86644; 86645; 86704; 86705; 86780; 86790; 86803; 87340; 87390

== ENCOUNTER 2018-01-07 05:07 | Inpatient (IN) | payer OTHER ==
--- NOTE | 2018-01-07 05:22 | ED ---
General Adult HPI - General Stated complaint: SOB Time Seen by Provider: 01/07/18 05:12 Source: EMS Mode of arrival: EMS Limitations: no limitations - History of Present Illness Initial comments: Lauren is a 57-year-old female with a history of COPD who presents the emergency department today for difficulty breathing. Patient reports she's had progressively worsening difficulty breathing for a couple of days. She reports that tonight it got significantly worse. She reports that she took her albuterol breathing treatment with no improvement which time she decided to call EMS. Patient denies any chest pain, palpitations, any productive cough, fevers or chills. She does report developing some nausea after the breathing treatments in route to the hospital. S reports that they found the patient in a tripoding position, increased work of breathing, tachypnea, diminished breath sounds in all. The patient was given supplemental oxygen and it DuoNeb therapy. Patient only tolerated part of the DuoNeb and then stated that it was making her nauseated and stopped it. - Related Data Home Medications Medication Instructions Recorded Confirmed Levothyroxine Sodium [Synthroid] 50 mcg PO DAILY 12/04/15 01/07/18 Albuterol Nebulized [Ventolin 2.5 mg INHALATION RT-QID 07/17/16 01/07/18 Nebulized] Ipratropium Nebulized [Atrovent 0.5 mg INHALATION RT-QID 07/17/16 01/07/18 Nebulized] Albuterol Sulfate [Proair Hfa] 1 - 2 puff INHALATION Q6HR PRN 01/07/18 01/07/18 Theophylline Anhydrous 400 mg PO 01/07/18 [Theophylline] Previous Rx's Medication Instructions Recorded ALPRAZolam [Xanax] 0.5 mg PO TID #21 tab 07/21/16 Ibuprofen [Motrin] 400 mg PO Q6HR PRN #0 tab 07/21/16 predniSONE 0 mg PO DIRECTED #30 tab 07/21/16 Allergies Allergy/AdvReac Type Severity Reaction Status Date / Time amoxicillin AdvReac Unknown Verified 07/17/16 22:00 Childhood erythromycin base AdvReac Unknown Verified 07/17/16 22:00 Childhood Review of Systems ROS Statement: Those systems with pertinent positive or pertinent negative responses have been documented in the HPI. ROS Other: All systems not noted in ROS Statement are negative. Past Medical History Past Medical History: Asthma, COPD, Thyroid Disorder History of Any Multi-Drug Resistant Organisms: None Reported Past Surgical History: Appendectomy, Hysterectomy, Tonsillectomy Additional Past Anesthesia/Blood Transfusion Reaction / Comment(s): Patient states she had problems with anesthesia in 1964, states ether was used and she had altered mental status. Past Psychological History: Anxiety Smoking Status: Current every day smoker Past Alcohol Use History: None Reported Past Drug Use History: None Reported - Past Family History Father Family Medical History: Renal Disease Mother Family Medical History: Congestive Heart Failure (CHF), Myocardial Infarction ( [place]) General Exam - General Exam Comments Initial Comments: Physical Exam GENERAL: Chronically ill-appearing female, appears older than stated age, diaphoretic, in moderate respiratory distress. HENT: Normocephalic, Atraumatic. EYES: PERRL, EOMI PULMONARY: Tachypnea, labored respirations, decreased lung sounds in all lung duff CARDIOVASCULAR: There is a regular rate and rhythm without any murmurs gallops or rubs. ABDOMEN: Soft and nontender with normal bowel sounds. SKIN: Any skin and nail changes on the hands and nails consistent with cigarette smoking : Deferred NEUROLOGIC: Patient is alert and oriented x3. Moving all extremities spontaneously MUSCULOSKELETAL: Normal extremities with adequate strength and full range of motion. No lower extremity swelling or edema. No calf tenderness. PSYCHIATRIC: Situational anxiety Limitations: no limitations Limitations: no limitations Course Vital Signs 01/07/18 01/07/18 01/07/18 05:08 05:39 05:53 Temperature 96.8 F L Pulse Rate 103 H 89 92 Respiratory 28 H 22 Rate Blood Pressure 154/82 138/77 O2 Sat by Pulse 92 L 100 Oximetry 01/07/18 01/07/18 05:59 06:55 Temperature 96.9 F L Pulse Rate 93 95 Respiratory 18 Rate Blood Pressure 128/67 O2 Sat by Pulse 100 Oximetry EKG Findings - EKG Comments: EKG Findings:: EKG obtained at 5:29 AM, rate is 99, rhythm is sinus, normal axis , normal intervals, [place] 124, QRS 86, QTC is 449, there is enlarged P waves consistent with right atrial enlargement and no acute ST elevations or depressions no evidence of acute ischemia or infarction. Medical Decision Making - Medical Decision Making The patient was seen and evaluated immediately upon arrival to the emergency department. Patient in moderate respiratory distress. Respiratory therapy was consulted for BiPAP Patient is received one albuterol, 1 DuoNeb prior to arrival Additional DuoNeb, Solu-Medrol ordered Patient significantly with DuoNeb and BiPAP Patient's labs resulted with significant leukocytosis, this is likely reactive, x-ray with no signs of pneumonia however given the patient's clinical status, COPD exacerbation, leukocytosis, tachypnea and tachycardia I will treat with by mouth doxycycline. She care was discussed with Dr. Wheat of the [facility] hospitalist group who accepts admission for COPD exacerbation with a consult pulmonology. - Lab Data Result diagrams: 01/07/18 05:15 01/07/18 05:15 Lab Results 01/07/18 01/07/18 01/07/18 Range/Units 05:15 05:15 05:15 WBC 17.7 H (3.8-10.6) k/uL RBC 4.34 (3.80-5.40) m/uL Hgb 13.4 (11.4-16.0) gm/dL Hct 43.8 (34.0-46.0) % MCV 101.1 H (80.0-100.0) fL MCH 30.9 (25.0-35.0) pg MCHC 30.6 L (31.0-37.0) g/dL RDW 13.2 (11.5-15.5) % Plt Count 406 (150-450) k/uL Neutrophils % (Manual) 48 % Lymphocytes % (Manual) 41 % Monocytes % (Manual) 7 % Eosinophils % (Manual) 4 % Neutrophils # (Manual) 8.50 H (1.3-7.7) k/uL Lymphocytes # (Manual) 7.26 H (1.0-4.8) k/uL Monocytes # (Manual) 1.24 H (0-1.0) k/uL Eosinophils # (Manual) 0.71 H (0-0.7) k/uL Nucleated RBCs 0 (0-0) /100 WBC Manual Slide Review Performed Poikilocytosis (manual Present Anisocytosis (manual) Present Macrocytosis Slight PT (9.0-12.0) sec INR (<1.2) APTT (22.0-30.0) sec Sodium 140 (137-145) mmol/L Potassium 4.2 (3.5-5.1) mmol/L Chloride 108 H (98-107) mmol/L Carbon Dioxide 29 (22-30) mmol/L Anion Gap 3 mmol/L BUN 13 (7-17) mg/dL Creatinine 0.55 (0.52-1.04) mg/dL Est GFR (CKD-EPI)AfAm >90 (>60 ml/min/1.73 sqM) Est GFR (CKD-EPI)NonAf >90 (>60 ml/min/1.73 sqM) Glucose 143 H (74-99) mg/dL Plasma Lactic Acid Edwardo (0.7-2.0) mmol/L Calcium 9.7 (8.4-10.2) mg/dL Magnesium 2.1 (1.6-2.3) mg/dL Total Bilirubin 0.2 (0.2-1.3) mg/dL AST 18 (14-36) U/L ALT 32 (9-52) U/L Alkaline Phosphatase 66 (38-126) U/L Total Creatine Kinase 37 (30-135) U/L CK-MB (CK-2) 0.8 (0.0-2.4) ng/mL CK-MB (CK-2) Rel Index 2.2 Troponin I <0.012 (0.000-0.034) ng/mL NT-Pro-B Natriuret Pep pg/mL Total Protein 6.6 (6.3-8.2) g/dL Albumin 4.2 (3.5-5.0) g/dL 01/07/18 01/07/18 01/07/18 Range/Units 05:15 05:15 05:15 WBC (3.8-10.6) k/uL RBC (3.80-5.40) m/uL Hgb (11.4-16.0) gm/dL Hct (34.0-46.0) % MCV (80.0-100.0) fL MCH (25.0-35.0) pg MCHC (31.0-37.0) g/dL RDW (11.5-15.5) % Plt Count (150-450) k/uL Neutrophils % (Manual) % Lymphocytes % (Manual) % Monocytes % (Manual) % Eosinophils % (Manual) % Neutrophils # (Manual) (1.3-7.7) k/uL Lymphocytes # (Manual) (1.0-4.8) k/uL Monocytes # (Manual) (0-1.0) k/uL Eosinophils # (Manual) (0-0.7) k/uL Nucleated RBCs (0-0) /100 WBC Manual Slide Review Poikilocytosis (manual Anisocytosis (manual) Macrocytosis PT 9.5 (9.0-12.0) sec INR 1.0 (<1.2) APTT 21.3 L (22.0-30.0) sec Sodium (137-145) mmol/L Potassium (3.5-5.1) mmol/L Chloride (98-107) mmol/L Carbon Dioxide (22-30) mmol/L Anion Gap mmol/L BUN (7-17) mg/dL Creatinine (0.52-1.04) mg/dL Est GFR (CKD-EPI)AfAm (>60 ml/min/1.73 sqM) Est GFR (CKD-EPI)NonAf (>60 ml/min/1.73 sqM) Glucose (74-99) mg/dL Plasma Lactic Acid Edwardo 1.0 (0.7-2.0) mmol/L Calcium (8.4-10.2) mg/dL Magnesium (1.6-2.3) mg/dL Total Bilirubin (0.2-1.3) mg/dL AST (14-36) U/L ALT (9-52) U/L Alkaline Phosphatase (38-126) U/L Total Creatine Kinase (30-135) U/L CK-MB (CK-2) (0.0-2.4) ng/mL CK-MB (CK-2) Rel Index Troponin I (0.000-0.034) ng/mL NT-Pro-B Natriuret Pep 34 pg/mL Total Protein (6.3-8.2) g/dL Albumin (3.5-5.0) g/dL Critical Care Time Critical Care Time: Yes Total Critical Care Time: 30 Disposition Clinical Impression: Acute exacerbation of chronic obstructive airways disease Disposition: ADMITTED IP TO THIS HOSP Condition: Serious
[2018-01-07] MEDS ORDERED: IPRATROPIUM-ALBUTEROL 3 ML NEB INHALATION STA (05:34)
[2018-01-07 05:38] LABS: HCT 43.8 % (34.0-46.0); HGB 13.4 gm/dL (11.4-16.0); MCH 30.9 pg (25.0-35.0); MCHC 30.6 g/dL (31.0-37.0); MCV 101.1 fL (80.0-100.0); Macrocytosis Slight; Mean Platelet Volume 8.4; Platelet Count 406 k/uL (150-450); RBC 4.34 m/uL (3.80-5.40); RDW 13.2 % (11.5-15.5); WBC 17.7 k/uL (3.8-10.6)
[2018-01-07] MEDS ORDERED: methylPREDNISolone SOD SUCCI 125 MG/2 ML VIAL IV STA (05:43)
[2018-01-07 05:47] LABS: ALT 32 U/L (9-52); AST 18 U/L (14-36); Albumin 4.2 g/dL (3.5-5.0); Alkaline Phosphatase 66 U/L (38-126); Anion Gap 3 mmol/L; Blood Urea Nitrogen 13 mg/dL (7-17); Calcium 9.7 mg/dL (8.4-10.2); Carbon Dioxide 29 mmol/L (22-30); Chloride 108 mmol/L (98-107); Glucose 143 mg/dL (74-99); Magnesium 2.1 mg/dL (1.6-2.3); Potassium 4.2 mmol/L (3.5-5.1); Sodium 140 mmol/L (137-145); Total Bilirubin 0.2 mg/dL (0.2-1.3); Total Protein 6.6 g/dL (6.3-8.2)
[2018-01-07 05:56] LABS: Prothrombin Time 9.5 sec (9.0-12.0)
--- NOTE | 2018-01-07 06:04 | XR ---
EXAMINATION TYPE: XR chest 1V DATE OF EXAM: 01/07/2018 COMPARISON: 04/19/2017 HISTORY: Difficulty breathing TECHNIQUE: Single frontal view of the chest is obtained. FINDINGS: Heart and mediastinum are within normal limits. There is pulmonary hyperinflation and flat tening the diaphragm. Bony thorax is intact. There are chest leads. IMPRESSION: COPD. No active cardiopulmonary disease. No change.
[2018-01-07 06:05] LABS: Creatine Kinase 37 U/L (30-135)
[2018-01-07 06:13] LABS: Partial Thromboplastin Time 21.3 sec (22.0-30.0)
[2018-01-07 06:17] LABS: Creatine Kinase MB 0.8 ng/mL (0.0-2.4); Troponin I <0.012 ng/mL (0.000-0.034)
[2018-01-07] MEDS ORDERED: IPRATROPIUM-ALBUTEROL 3 ML NEB INHALATION PRN (06:26)
[2018-01-07] MEDS ORDERED: ACETAMINOPHEN TAB 325 MG TAB PO STA (06:36)
[2018-01-07 06:45] LABS: Eosinophils # (M) 0.71 k/uL (0-0.7); Lymphocytes # (M) 7.26 k/uL (1.0-4.8); Monocytes # (M) 1.24 k/uL (0-1.0); Neutrophils % (M) 48 %; Nucleated Red Blood Cells 0 /100 WBC (0-0); Total Cells Counted 100
[2018-01-07 06:47] LABS: Anisocytosis (M) Present; Poikilocytosis (M) Present
[2018-01-07] MEDS ORDERED: NICOTINE 7MG/24HR PATCH TRANSDERM SCH (09:00)
[2018-01-07] MEDS ORDERED: AZITHROMYCIN 500 MG TAB PO SCH (09:00)
[2018-01-07] MEDS ORDERED: DOXYCYCLINE 100 MG CAP PO SCH (09:00)
[2018-01-07 09:39] VITALS: RESP 21; TEMP 98.3
[2018-01-07 12:11] VITALS: BP 103/55; PULSE 100
--- NOTE | 2018-01-07 13:00 | P.CNPUL ---
History of Present Illness Consult date: 01/07/18 Reason for consult: dyspnea, cough, COPD, hypoxemia, abnormal CXR/CT, obstructive sleep apnea Chief complaint: Shortness of breath, wheezing, cough, phlegm production. History of present illness: Pulmonary consult dated 01/07/2018 57-year-old female with history of very severe COPD. She presented to the emergency department with 1 day's worth of increasing shortness of breath cough wheezing phlegm production. She apparently woke up at about 3:00 in the morning with progressive and severe shortness of breath. She states that she was having a severe headache as well. No chest pain or pressure. She was coughing a lot of chest congestion and coughing up yellow phlegm. She decided to call EMS. Patient was evaluated in the emergency department and was thought to be bad enough to be admitted to the hospital. Initially, they did have her on BiPAP. After a couple of hours so, she seemed to improve significantly she' s pretty much back to baseline. I went to go see her in the emergency room. She was resting comfortably. The patient states that she feels like she is back to baseline and would like to be discharged home. She doesn't feel like she needs to be admitted to the hospital. I did tell her that if Dr. Wilde agreed to discharge her home, she should see me in the office this week. I gave her my number and told her to call tomorrow morning at 8:30 to make an appointment. In addition, I wrote out a prescription for some prednisone with a burst and taper beginning with 40 mg and Bactrim DS twice a day for 7 days. I asked her to start those today. In addition to severe COPD, she does have a history of hypothyroidism. Review of Systems A 14 point review of systems is positive for shortness of breath chest tightness wheezing cough chest congestion and yellow phlegm production. All the symptoms have pretty much settled down and she is feeling back to baseline. In addition, the patient did admit to a headache. These symptoms have been present for about one day prior to admission. Past Medical History Past Medical History: Asthma, COPD, Thyroid Disorder History of Any Multi-Drug Resistant Organisms: None Reported Past Surgical History: Appendectomy, Hysterectomy, Tonsillectomy Additional Past Anesthesia/Blood Transfusion Reaction / Comment(s): Patient states she had problems with anesthesia in 1965, states ether was used and she had altered mental status. Past Psychological History: Anxiety Smoking Status: Current every day smoker Past Alcohol Use History: None Reported Past Drug Use History: None Reported - Past Family History Father Family Medical History: Renal Disease Mother Family Medical History: Congestive Heart Failure (CHF), Myocardial Infarction ( [place]) Medications and Allergies Home Medications Medication Instructions Recorded Confirmed Type Albuterol Nebulized [Ventolin 2.5 mg INHALATION RT-QID 07/17/16 01/07/18 History Nebulized] Ipratropium Nebulized [Atrovent 0.5 mg INHALATION RT-QID 07/17/16 01/07/18 History Nebulized] ALPRAZolam [Xanax] 0.5 mg PO TID #21 tab 07/21/16 01/07/18 Rx Ibuprofen [Motrin] 400 mg PO Q6HR PRN #0 tab 07/21/16 01/07/18 Rx Albuterol Sulfate [Proair Hfa] 1 - 2 puff INHALATION RT-Q6H PRN 01/07/18 History Theophylline Anhydrous 400 mg PO DAILY 01/07/18 01/07/18 History [Theophylline] buPROPion XL [Wellbutrin Xl] 150 mg PO DAILY 01/07/18 01/07/18 History predniSONE 5 mg PO DAILY 01/07/18 01/07/18 History Allergies Allergy/AdvReac Type Severity Reaction Status Date / Time amoxicillin AdvReac Unknown Verified 01/07/18 07:26 Childhood erythromycin base AdvReac Unknown Verified 01/07/18 07:26 Childhood Physical Exam Osteopathic Statement: *. No significant issues noted on an osteopathic structural exam other than those noted in the History and Physical/Consult. Vitals: Vital Signs Temp Pulse Resp BP Pulse Ox 01/07/18 12:00 100 103/55 93 L 01/07/18 11:57 94 01/07/18 11:50 97 103/55 95 01/07/18 11:48 98 01/07/18 11:40 82 103/55 98 01/07/18 11:30 97 102/51 97 01/07/18 11:20 93 102/51 94 L 01/07/18 11:10 94 102/51 97 01/07/18 11:00 86 110/59 95 01/07/18 10:50 83 110/59 95 01/07/18 10:40 84 110/59 96 01/07/18 10:30 107 H 92/50 95 01/07/18 10:20 91 92/50 95 01/07/18 10:10 87 92/50 95 01/07/18 10:00 87 109/63 95 01/07/18 09:50 85 109/63 96 01/07/18 09:40 92 109/63 96 01/07/18 09:35 98.3 F 101 H 21 109/63 96 01/07/18 09:30 85 96/50 99 01/07/18 09:20 85 96/50 100 01/07/18 09:10 96/50 100 01/07/18 09:00 87 100/61 99 01/07/18 08:50 86 100/61 100 01/07/18 08:40 90 100/61 99 01/07/18 08:30 97 96/44 100 01/07/18 08:20 87 96/44 100 01/07/18 08:10 87 96/44 100 01/07/18 08:00 84 101/49 100 01/07/18 07:50 86 101/49 100 01/07/18 07:40 85 101/49 100 01/07/18 07:30 83 121/57 100 01/07/18 07:20 86 121/57 100 01/07/18 07:10 86 121/57 100 01/07/18 07:00 94 128/67 100 01/07/18 06:55 96.9 F L 95 18 128/67 100 01/07/18 06:50 94 128/67 100 01/07/18 06:40 89 128/67 100 01/07/18 06:30 89 118/72 100 01/07/18 06:20 87 118/72 100 01/07/18 06:10 93 118/72 100 01/07/18 06:00 93 18 133/77 100 01/07/18 05:59 93 01/07/18 05:53 92 22 138/77 100 01/07/18 05:39 89 01/07/18 05:30 97 18 154/82 100 01/07/18 05:10 18 93 L 01/07/18 05:08 96.8 F L 103 H 28 H 154/82 92 L Intake and Output 01/06/18 01/07/18 01/07/18 22:59 06:59 14:59 Other: Weight 56.019 kg No acute distress, oriented 3. Nasal O2 in place. The patient does not have any audible wheezing or deepti respiratory distress. There is no use of accessory muscles. No nasal flaring. HEENT examination is grossly unremarkable. Mucous membranes are moist. No oral lesions. Neck supple. Full range of motion. No adenopathy thyromegaly or neck vein distention. Cardiovascular examination reveals regular rhythm rate. S1-S2 normal. No S3 or S4. No discernible murmur noted. Lungs reveal severely diminished breath sounds. There are some high-pitched expiratory wheezes. No rhonchi. Slight prolongation on forced maneuver. Abdomen soft bowel sounds are heard. No masses or tenderness. Extremities are intact. No cyanosis clubbing or edema. Skin is without rash or lesion. Neurologic examination is brief but nonfocal. Results - Laboratory Findings CBC and BMP: 01/07/18 05:15 01/07/18 05:15 PT/INR, D-dimer PT 9.5 sec (9.0-12.0) 01/07/18 05:15 INR 1.0 (<1.2) 01/07/18 05:15 Abnormal lab findings: Abnormal Labs 01/07/18 01/07/18 01/07/18 05:15 05:15 05:15 WBC 17.7 H MCV 101.1 H MCHC 30.6 L Neutrophils # (Manual) 8.50 H Lymphocytes # (Manual) 7.26 H Monocytes # (Manual) 1.24 H Eosinophils # (Manual) 0.71 H APTT 21.3 L Chloride 108 H Glucose 143 H - Diagnostic Findings Chest x-ray: report reviewed (Chest x-ray, labs and medications are all reviewed.), image reviewed Assessment and Plan Assessment: Assessment COPD exacerbation complicated by purulent bronchitis in a patient with severe oxygen-dependent COPD Chronic hypoxemic respiratory failure with multiple exacerbations History of ongoing heavy tobacco use History of hypothyroidism History of anxiety History of appendectomy, hysterectomy, tonsillectomy. Plan: Plan dated 01/07/2018 The patient is doing much better currently. She would like to be discharged home. I did write out a prescription for prednisone with a burst and taper as well as some antibiotic in the form of Bactrim DS twice a day for 7 days. I told the patient to call the office tomorrow morning at 8:30 and asked to be seen. I should see her this week. I told her to start the medications today. She is feeling back to baseline and would like to go home. One of the reasons that she wants to go home is that she wants to continue to smoke. I've counseled her multiple times about the importance of smoking cessation. Overall prognosis is very guarded. She does have stage IV/severe COPD. Time with Patient: Greater than 30
[2018-01-08] MEDS ORDERED: predniSONE 20 MG TAB PO SCH (09:00)
== END 2018-01-07 14:23 | disposition home or self-care (01) | DRG 191 ==
LOC: EC 05:07 → 3SCARD 06:26
PROVIDERS: ADMIT Hospitalist; ATTEND Hospitalist
PROC: 5A09357 Assistance with Respiratory Ventilation, Less than 24 Consecutive Hours, Continuous Positive Airway Pressure (ICD-10-PCS; principal; 2018-01-07)
DX: J44.1 Chronic obstructive pulmonary disease with (acute) exacerbation (principal); J96.11 Chronic respiratory failure with hypoxia; J44.0 Chronic obstructive pulmonary disease with (acute) lower respiratory infection; J20.9 Acute bronchitis, unspecified; E03.9 Hypothyroidism, unspecified; Z71.6 Tobacco abuse counseling; F17.210 Nicotine dependence, cigarettes, uncomplicated; G47.33 Obstructive sleep apnea (adult) (pediatric); Z82.49 Family history of ischemic heart disease and other diseases of the circulatory system; Z84.1 Family history of disorders of kidney and ureter; Z90.710 Acquired absence of both cervix and uterus; Z99.81 Dependence on supplemental oxygen; Z79.899 Other long term (current) drug therapy; Z88.1 Allergy status to other antibiotic agents; Z88.0 Allergy status to penicillin
CPT/HCPCS: 36415; 71045; 80053; 82550; 82553; 83605; 83735; 83880; 84484; 85025; 85610; 85730; 87040; 93005; 94640; 94660; 96374; 99291

== ENCOUNTER 2018-03-14 20:25 | Inpatient (IN) | payer OTHER ==
[2018-03-14] MEDS ORDERED: fentaNYL (PF) 50 MCG/ML 2 ML AMP IVP STA (20:32)
[2018-03-14] MEDS: MIDAZOLAM 1 MG/ML 5 ML VIAL IV STA ×2 (20:33→23:01)
[2018-03-14] MEDS ORDERED: SUCCINYLCHOLINE CHLORIDE VIAL 200 MG/10 ML VIAL IV STA (20:35)
[2018-03-14] MEDS ORDERED: PROPOFOL 1,000 MG in EMPTY BAG 1 BAG IV ONE (20:38)
[2018-03-14] MEDS ORDERED: IPRATROPIUM-ALBUTEROL 3 ML NEB INHALATION STA (20:40)
[2018-03-14] MEDS ORDERED: SODIUM CHLORIDE 0.9% 1,000 ML IV STA (20:40)
[2018-03-14] MEDS ORDERED: methylPREDNISolone SOD SUCCI 125 MG/2 ML VIAL IV STA (20:40)
[2018-03-14] MEDS ORDERED: MAGNESIUM SULFATE-D5W PMX 1 GM in DEXTROSE/WATER 1 100ML.BAG IVPB STA (20:40)
--- NOTE | 2018-03-14 21:06 | XR ---
EXAMINATION TYPE: XR chest 1V portable DATE OF EXAM: 03/14/2018 COMPARISON: 01/07/2018 HISTORY: Short of breath TECHNIQUE: Single frontal view of the chest is obtained. FINDINGS: There is pulmonary hyperinflation and flattening of the diaphragm. Heart size is normal. T here is some mild pleural thickening at the left lung apex. Heart size is normal. There is no heart f ailure. IMPRESSION: Emphysema. Pleural and pulmonary scarring at the left lung apex. No change compared to l ast exam.
--- NOTE | 2018-03-14 21:15 | ED ---
SOB HPI - General Chief Complaint: Shortness of Breath Stated Complaint: DEL Time Seen by Provider: 03/14/18 20:25 Source: patient, EMS, RN notes reviewed, old records reviewed Mode of arrival: EMS - History of Present Illness Initial Comments: This is a 57-year-old female history of COPD who apparently has had difficulty breathing last 2 days with a cough of green phlegm. She got progressively worse today and finally call EMS . In route the patient became more dyspneic could not tolerate a mask or BiPAP. Upon arrival she was in severe respiratory distress and failure with negligible breath sounds and) respiratory effort. MD Complaint: shortness of breath, anxiety - Related Data Home Medications Medication Instructions Recorded Confirmed Albuterol Nebulized [Ventolin 2.5 mg INHALATION RT-QID 07/17/16 01/07/18 Nebulized] Ipratropium Nebulized [Atrovent 0.5 mg INHALATION RT-QID 07/17/16 01/07/18 Nebulized 0.2 MG/ML] Albuterol Sulfate [Proair Hfa] 1 - 2 puff INHALATION RT-Q6H PRN 01/07/18 Theophylline Anhydrous 400 mg PO DAILY 01/07/18 01/07/18 [Theophylline] buPROPion XL [Wellbutrin XL] 150 mg PO DAILY 01/07/18 01/07/18 predniSONE 5 mg PO DAILY 01/07/18 01/07/18 Previous Rx's Medication Instructions Recorded ALPRAZolam [Xanax] 0.5 mg PO TID #21 tab 07/21/16 Ibuprofen [Motrin] 400 mg PO Q6HR PRN #0 tab 07/21/16 Doxycycline [Vibramycin] 100 mg PO BID cap 01/07/18 predniSONE 40 mg PO DAILY tab 01/07/18 Allergies Allergy/AdvReac Type Severity Reaction Status Date / Time amoxicillin AdvReac Unknown Verified 03/14/18 20:28 Childhood erythromycin base AdvReac Unknown Verified 03/14/18 20:28 Childhood Review of Systems ROS Statement: Those systems with pertinent positive or pertinent negative responses have been documented in the HPI. ROS Other: All systems not noted in ROS Statement are negative. Past Medical History Past Medical History: Asthma, COPD, Thyroid Disorder History of Any Multi-Drug Resistant Organisms: None Reported Past Surgical History: Appendectomy, Hysterectomy, Tonsillectomy Additional Past Anesthesia/Blood Transfusion Reaction / Comment(s): Patient states she had problems with anesthesia in 1965, states ether was used and she had altered mental status. Past Psychological History: Anxiety Smoking Status: Current every day smoker Past Alcohol Use History: None Reported Past Drug Use History: None Reported - Past Family History Father Family Medical History: Renal Disease Mother Family Medical History: Congestive Heart Failure (CHF), Myocardial Infarction ( [place]) General Exam - General Exam Comments Initial Comments: Is a well-developed asthenic appearing female who is in obvious respiratory distress she is awake and alert though very fatigued. General appearance: alert, lethargic, in distress Head exam: Present: atraumatic, normocephalic, normal inspection Eye exam: Present: normal appearance, PERRL, EOMI. Absent: scleral icterus, conjunctival injection, periorbital swelling ENT exam: Present: mucous membranes dry Neck exam: Present: normal inspection, full ROM, other (No JVD or bruits). Absent: tenderness, meningismus, lymphadenopathy Respiratory exam: Present: respiratory distress, accessory muscle use, decreased breath sounds Cardiovascular Exam: Present: tachycardia GI/Abdominal exam: Present: soft, normal bowel sounds. Absent: distended, tenderness, guarding, rebound, rigid Rectal exam: Present: deferred Extremities exam: Present: normal inspection, full ROM, normal capillary refill. Absent: tenderness, pedal edema, joint swelling, calf tenderness Back exam: Present: normal inspection Neurological exam: Present: alert, oriented X3, CN II-XII intact Psychiatric exam: Present: anxious Skin exam: Present: intact, cyanosis Course Vital Signs 03/14/18 20:31 Pulse Rate 100 Respiratory 32 H Rate Blood Pressure 148/75 O2 Sat by Pulse 99 Oximetry - Reevaluation(s) Reevaluation #1: 03/14/18 21:19 I did meet with the family discuss the initial findings with them. This did include discussion about intubation and the requirement thereof the patient was given the option of intubation and she did agree to accept. Reevaluation #2: 03/14/18 21:20 I did discuss the case with Dr. Renteria. He is covering Dr. Fleming. Reevaluation #3: 03/14/18 21:33 I did discuss case with Dr. Salinas. Patient then settings will be changed to a rate of 20 FiO2 of 100% total by mother 350 with 5 of PEEP. Also the patient did become awake agitated and did require soft restraints and an additional 5cc of propofol administered by me. Procedures - Intubation Time Out Performed: No (S of bedside attendance) Sedative: Fentanyl Mg Given: 50 Paralytic: Succinylcholine Mg Given: 70 Laryngoscope: [place] Size: 3 ET Tube Size: 7.5 ET Tube Uncuffed: No (Cuffed) Tube Secured Depth (cm): 21 Tube Placement Confirmation: visualized tube passing through cords, equal breath sounds bilaterally, confirmation by capnometry Patient Tolerated Procedure: well Intubation Complications: none (The initial placement of the tube was just above the alban was withdrawn additional centimeter.) Medical Decision Making - Lab Data Result diagrams: 03/14/18 20:34 Lab Results 03/14/18 Range/Units 20:34 WBC 15.3 H (3.8-10.6) k/uL RBC 5.03 (3.80-5.40) m/uL Hgb 15.6 (11.4-16.0) gm/dL Hct 51.0 H (34.0-46.0) % MCV 101.2 H (80.0-100.0) fL MCH 31.1 (25.0-35.0) pg MCHC 30.7 L (31.0-37.0) g/dL RDW 13.4 (11.5-15.5) % Plt Count 461 H (150-450) k/uL Neutrophils % 78 % Lymphocytes % 12 % Monocytes % 6 % Eosinophils % 1 % Basophils % 1 % Neutrophils # 11.9 H (1.3-7.7) k/uL Lymphocytes # 1.9 (1.0-4.8) k/uL Monocytes # 0.9 (0-1.0) k/uL Eosinophils # 0.1 (0-0.7) k/uL Basophils # 0.1 (0-0.2) k/uL Macrocytosis Slight - EKG Data -: EKG Interpreted by Me EKG shows normal: sinus rhythm (Sinus tachycardia with a rate of 1 awake. Interval 116 QRS duration 80 QT since QTC 324/434 by atrial enlargement nonspecific anterior changes. This is compared with EKG dated 01/07/18 showing similar configuration.) - Radiology Data Radiology results: report reviewed (I did review the imaging and report no acute findings the endotracheal tube again was retracted 1 cm higher than what it was on this x-ray.), image reviewed Critical Care Time Critical Care Time: Yes Critical Care Time: 47 minutes of critical care time which does not include the intubation this includes bedside management as well as discussed with patient family members. Discussion with physicians admission orders and documentation of the above. This also includes assisting with restraints Disposition Clinical Impression: Acute exacerbation of chronic obstructive airways disease, Acute respiratory failure, Dehydration Disposition: ADMITTED IP TO THIS HOSP Condition: Critical Referrals: Shar Fleming DO [Primary Care Provider] - 1-2 days
[2018-03-14] MEDS ORDERED: SODIUM CHLORIDE 0.9% 500 ML 500 ML IV ONE (21:19)
[2018-03-14] MEDS ORDERED: LORazepam 2 MG/ML INJ IV STA (21:30)
[2018-03-14 21:32] LABS: Basophils # (A) 0.1 k/uL (0-0.2); Basophils % (A) 1 %; Eosinophils # (A) 0.1 k/uL (0-0.7); Eosinophils % (A) 1 %; HGB 15.6 gm/dL (11.4-16.0); Lymphocytes # (A) 1.9 k/uL (1.0-4.8); Lymphocytes % (A) 12 %; MCH 31.1 pg (25.0-35.0); MCHC 30.7 g/dL (31.0-37.0); MCV 101.2 fL (80.0-100.0); Macrocytosis Slight; Mean Platelet Volume 7.1; Monocytes # (A) 0.9 k/uL (0-1.0); Monocytes % (A) 6 %; Neutrophils # (A) 11.9 k/uL (1.3-7.7); Neutrophils % (A) 78 %; Platelet Count 461 k/uL (150-450); RBC 5.03 m/uL (3.80-5.40); RDW 13.4 % (11.5-15.5); WBC 15.3 k/uL (3.8-10.6)
[2018-03-14] MEDS ORDERED: NALOXONE 0.4 MG/ML 1 ML VIAL IV PRN (21:36)
[2018-03-14] MEDS ORDERED: ARTIFICIAL TEARS-HYPROMELLOSE DROPS 15 ML BTL BOTH EYES PRN (21:36)
[2018-03-14 21:38] LABS: ALT 35 U/L (9-52); AST 28 U/L (14-36); Albumin 4.4 g/dL (3.5-5.0); Alkaline Phosphatase 83 U/L (38-126); Anion Gap 9 mmol/L; Blood Urea Nitrogen 17 mg/dL (7-17); Calcium 10.2 mg/dL (8.4-10.2); Carbon Dioxide 34 mmol/L (22-30); Chloride 99 mmol/L (98-107); Glucose 115 mg/dL (74-99); Magnesium 2.2 mg/dL (1.6-2.3); Potassium 4.6 mmol/L (3.5-5.1); Sodium 142 mmol/L (137-145); Total Bilirubin 0.4 mg/dL (0.2-1.3); Total Protein 7.5 g/dL (6.3-8.2)
[2018-03-14 21:44] LABS: Creatine Kinase 58 U/L (30-135)
[2018-03-14 21:51] LABS: D-Dimer 0.33 mg/L FEU (<0.60); INR 0.8 (<1.2); Prothrombin Time 9.3 sec (9.0-12.0)
[2018-03-14 21:54] LABS: Partial Thromboplastin Time 20.1 sec (22.0-30.0)
[2018-03-14 21:58] LABS: Troponin I <0.012 ng/mL (0.000-0.034)
[2018-03-14] MEDS ORDERED: PROPOFOL 10 MG/ML 20 ML VIAL IV STA (22:30)
[2018-03-14 23:02] LABS: Creatine Kinase MB 1.6 ng/mL (0.0-2.4)
[2018-03-14 23:23] LABS: Glucose,Whole Blood 132 mg/dL (75-99)
[2018-03-14] MEDS: PROPOFOL 1,000 MG in EMPTY BAG 1 BAG IV SCH (23:25)
[2018-03-14] MEDS: SODIUM CHLORIDE 0.9% 1,000 ML IV SCH (23:31)
[2018-03-14 23:35] LABS: ABG Base Excess 3.8 mmol/L; ABG HCO3 29 mmol/L (21-25); ABG Oxygen Saturation 99.8 % (94-97); ABG PCO2 52 mmHg (35-45); ABG PH 7.36 (7.35-7.45); ABG PO2 >400 mmHg (83-108); ABG TCO2 31 mmol/L (19-24)
[2018-03-14] MEDS ORDERED: ACETAMINOPHEN TAB 325 MG TAB PO PRN (23:40)
[2018-03-14] MEDS: IPRATROPIUM-ALBUTEROL 3 ML NEB INHALATION SCH (23:42)
[2018-03-15 00:34] VITALS: BMI 16.2
[2018-03-15 01:18] LABS: Appearance,Urine Cloudy (Clear); Bacteria,Urine Rare /hpf; Bilirubin,Urine Negative (Negative); Blood,Urine Moderate (Negative); Cellular Casts,Urine 1 /lpf (0); Color,Urine Yellow; Glucose,Urine (UA) Negative (Negative); Hyaline Casts,Urine 10 /lpf (0-2); Ketones,Urine Negative (Negative); Leukocyte Esterase,Urine Negative (Negative); Mucus,Urine Occasional /hpf; Nitrite,Urine Negative (Negative); Protein,Urine 1+ (Negative); RBC,Urine 56 /hpf (0-5); Squamous Epithelial Cell,Urine 3 /hpf (0-4); Urobilinogen,Urine <2.0 mg/dL (<2.0); WBC,Urine 6 /hpf (0-5)
[2018-03-15] MEDS: methylPREDNISolone SOD SUCCI 125 MG/2 ML VIAL IV SCH ×4 (01:22→17:26)
[2018-03-15] MEDS: IPRATROPIUM-ALBUTEROL 3 ML NEB INHALATION SCH ×6 (03:17→23:06)
[2018-03-15] MEDS: LORazepam 2 MG/ML INJ IV PRN ×2 (03:25→08:49)
[2018-03-15 04:27] LABS: ABG Base Excess 4.1 mmol/L; ABG HCO3 29 mmol/L (21-25); ABG PCO2 49 mmHg (35-45); ABG PH 7.39 (7.35-7.45); ABG PO2 209 mmHg (83-108); ABG TCO2 31 mmol/L (19-24)
[2018-03-15 05:40] LABS: Basophils % (A) 0 %; Eosinophils % (A) 0 %; HCT 39.4 % (34.0-46.0); Hypochromasia Slight; Lymphocytes # (A) 0.3 k/uL (1.0-4.8); Lymphocytes % (A) 3 %; MCH 31.7 pg (25.0-35.0); MCHC 30.8 g/dL (31.0-37.0); MCV 103.2 fL (80.0-100.0); Macrocytosis Slight; Mean Platelet Volume 7.4; Monocytes # (A) 0.1 k/uL (0-1.0); Monocytes % (A) 1 %; Neutrophils # (A) 10.7 k/uL (1.3-7.7); Neutrophils % (A) 96 %; Platelet Count 335 k/uL (150-450); RBC 3.82 m/uL (3.80-5.40); RDW 13.3 % (11.5-15.5); WBC 11.2 k/uL (3.8-10.6)
[2018-03-15 05:49] LABS: HGB 12.1 gm/dL (11.4-16.0)
[2018-03-15 05:53] LABS: Glucose,Whole Blood 151 mg/dL (75-99)
[2018-03-15] MEDS: SODIUM CHLORIDE 0.9% 1,000 ML IV SCH ×3 (05:54→21:05)
[2018-03-15 05:58] LABS: Anion Gap 5 mmol/L; Blood Urea Nitrogen 20 mg/dL (7-17); Calcium 8.7 mg/dL (8.4-10.2); Carbon Dioxide 25 mmol/L (22-30); Chloride 108 mmol/L (98-107); Glucose 158 mg/dL (74-99); Magnesium 2.5 mg/dL (1.6-2.3); Phosphorus 4.5 mg/dL (2.5-4.5); Potassium 4.7 mmol/L (3.5-5.1); Sodium 138 mmol/L (137-145)
--- NOTE | 2018-03-15 07:18 | XR ---
EXAMINATION TYPE: XR chest 1V DATE OF EXAM: 03/15/2018 HISTORY: Shortness of breath. COMPARISON: 03/14/2018 TECHNIQUE: Single view of the chest is submitted. FINDINGS: Demonstrated are scattered senescent parenchymal change. Endotracheal and NG tubes are in place. There is no evidence for focal infiltrate. The heart is stable. Hilar and mediastinal structures are within normal limits. Degenerative changes are seen of the dorsal spine. IMPRESSION: 1. Chronic changes without evidence for acute pulmonary disease.
[2018-03-15] MEDS ORDERED: MORPHINE SULFATE 4 MG/ML SYRINGE IVP PRN (09:01)
[2018-03-15] MEDS ORDERED: SODIUM CHLORIDE 0.9% 500 ML 500 ML IV ONE ×2 (09:02→13:23)
[2018-03-15] MEDS: MORPHINE SULFATE 2 MG/ML SYRINGE IVP PRN ×4 (09:05→23:09)
[2018-03-15] MEDS: HEPARIN SODIUM,PORCINE 5,000 UNIT/ML 1 ML VIAL SQ SCH ×2 (09:31→20:47)
[2018-03-15] MEDS: CHLORHEXIDINE GLUCONATE 15 ML CUP MUCOUS MEM SCH ×2 (09:32→20:47)
[2018-03-15] MEDS: PANTOPRAZOLE 40 MG/10 ML VIAL IV SCH (09:32)
[2018-03-15] MEDS: PROPOFOL 1,000 MG in EMPTY BAG 1 BAG IV SCH (09:44)
[2018-03-15] MEDS: LEVOFLOXACIN 500MG-D5W PMX 500 MG in DEXTROSE/WATER 1 100ML.BAG IVPB SCH (09:56)
--- NOTE | 2018-03-15 10:17 | CONS ---
CONSULTATION DATE OF SERVICE: 03/15/2018 This is a 57-year-old female well known to me. She has a history of severe COPD. The patient continues to smoke cigarettes. She apparently developed increasing shortness of breath over the last couple of days. In addition, she had chest congestion, cough and green phlegm production. It is not clear as to whether not she had fever. When she arrived to the emergency room, she was in extremis and she was intubated by Dr. Yuval Cuellar. She was transferred to the ICU for my care. The patient is currently on the mechanical ventilator. Her vent settings include the volume assist-control mode rate of 20, tidal volume 350, FiO2 of 35%, PEEP of 5. Blood gases show a PO2 of 209, pCO2 of 49, and pH of 7.39 that was on 50% and the FiO2 was dropped down to 35%. Her peak airway pressure is 34. Her plateau pressure is 16 and her airways resistance is calculated to be 18 cm of water/L per second. She is on propofol at 35 mcg/kg per minute and she is on a saline IV 125 mL an hour. Her chest x-ray shows changes only of COPD. No infiltrates. HOME MEDICATIONS: Include updrafts with albuterol and Atrovent. She has got a ProAir inhaler. She takes theophylline 400 mg q.h.s., Wellbutrin XL 150 mg a day and prednisone 5 mg a day. She is also on a combination inhaled corticosteroids/long-acting beta agonist. She is on either Advair, Symbicort, Dulera or Breo. I am not sure which one she is on. In addition, she is on some Vibramycin and Motrin as well as Xanax p.r.n. ALLERGIES: Are AMOXICILLIN, ERYTHROMYCIN. PAST MEDICAL HISTORY: Positive primarily for COPD. SURGICAL HISTORY: Includes appendectomy, hysterectomy, and tonsillectomy. SOCIAL HISTORY: Positive for ongoing tobacco use despite counseling. Denies any alcohol use or illicit drug use. FAMILY HISTORY: Positive for congestive heart failure, myocardial infarction. OCCUPATIONAL HISTORY: Noncontributory. 14 POINT REVIEW OF SYSTEMS: Could not be obtained because the patient is currently mechanically ventilated. Current vital signs are reviewed. They include a temperature of 97.8, heart rate 83, respiratory rate 20, blood pressure 84/51, mean 62, and saturation of 97% on 35% FiO2 and 5 of PEEP. The patient is currently intubated and mechanically ventilated. There is an oral endotracheal tube and NG tube. HEENT examination is grossly unremarkable. Mucous membranes are moist. Oral endotracheal tube is noted. Neck is supple. Full range of motion. No adenopathy, thyromegaly or neck vein distention. Cardiovascular examination reveals regular rhythm and rate. Heart rate in mid 80s. S1, S2 normal. No murmur. Lungs examination reveals severely diminished breath sounds throughout. There is some expiratory wheezes. No crackles. A few scattered rhonchi are noted. Breath sounds are equal bilaterally but diminished throughout. Abdomen is soft, bowel sounds are heard. Extremities are intact. No cyanosis, clubbing, or edema. Skin without rash. Neurologic examination could not be adequately assessed. CURRENT LAB DATA: Includes a white count of 11.2, hemoglobin 12.1, hematocrit 39.4, platelet count normal, sodium 138, potassium 4.7, chloride 108, CO2 is 25, BUN and creatinine were 20 and 0.63. Urine shows it to be yellow and cloudy. There is 1+ protein, moderate blood, 56 RBCs, 6 WBCs, rare bacteria. Microbiologic studies are negative. Medications are reviewed. She is currently on all the appropriate medications including Pulmicort and Perforomist twice a day, DuoNeb q.4, Solu-Medrol 60 mg q.6 hours and she should be on Levaquin, but I am not seeing it. Other medications are appropriate. I am going to have the nurse discontinue the Ativan. I would rather go with narcotic and propofol. ASSESSMENT: 1. Acute hypoxemic respiratory failure secondary to severe chronic obstructive pulmonary disease exacerbation in a patient with ongoing tobacco use, status post intubation and mechanical ventilation on 03/14/2018. 2. A severe stage IV chronic obstructive pulmonary disease. 3. Ongoing tobacco use nicotine addiction. 4. Anxiety. 5. Depression. 6. Rule out urinary tract infection. PLAN: The patient will remain on DuoNeb q.4, Pulmicort 1 mg mix with Perforomist twice a day and Solu-Medrol 60 mg q.6. We also added Levaquin 500 mg IV daily. The patient will continue to be watched. Will add some tube feeds. We add a nicotine patch at 14 mg a day. No additional recommendations are made. Prognosis is guarded to poor. Despite ongoing counseling, the patient continues to smoke cigarettes. MMODL / IJN: [id number] /
[2018-03-15 11:49] LABS: Glucose,Whole Blood 155 mg/dL (75-99)
[2018-03-15] MEDS: INSULIN ASPART 100 UNIT/ML 1 ML 10 ML VIAL SQ SCH ×2 (11:51→17:27)
[2018-03-15] MEDS: NOREPINEPHRINE 4 MG in SODIUM CHLORIDE 0.9% 250 ML IV SCH (14:09)
--- NOTE | 2018-03-15 16:47 | P.HPIM ---
History of Present Illness 57-year-old female with a history of severe COPD continues to smoke came in with compensative from severe shortness of breath cough with green sputum production doesn't have significant pneumonia on the chest x-ray but does have severe bronchitis patient was started on levofloxacin and patient respiratory status is worsened after arrival to ER because of which patient was subsequently intubated patient is presently on FiO2 of 35% PEEP of 5 set up respiratory rate of 20 because of respiratory acidosis to lower limb of 350. Patient is a thin built female. Patient's pCO2 presently is 49 pH of 7.39. Patient was bit hypotensive secondary to sedation for which patient is also getting Levophed at this time. No evidence of significant sepsis or septic shock. Patient was evaluated by furniture salesperson. Patient is on the systemic steroids inhalational treatments at this time Review of Systems Unable to obtain Past Medical History Past Medical History: Asthma, COPD, Thyroid Disorder History of Any Multi-Drug Resistant Organisms: None Reported Past Surgical History: Appendectomy, Hysterectomy, Tonsillectomy Additional Past Anesthesia/Blood Transfusion Reaction / Comment(s): Patient states she had problems with anesthesia in 1964, states ether was used and she had altered mental status. Past Psychological History: Anxiety Smoking Status: Current every day smoker Past Alcohol Use History: None Reported Past Drug Use History: None Reported - Past Family History Father Family Medical History: Renal Disease Mother Family Medical History: Congestive Heart Failure (CHF), Myocardial Infarction ( [place]) Medications and Allergies Home Medications Medication Instructions Recorded Confirmed Type Albuterol Nebulized [Ventolin 2.5 mg INHALATION RT-QID 07/17/16 03/14/18 History Nebulized] Ipratropium Nebulized [Atrovent 0.5 mg INHALATION RT-QID 07/17/16 03/14/18 History Nebulized 0.2 MG/ML] Theophylline Anhydrous 400 mg PO DAILY 01/07/18 03/14/18 History [Theophylline] buPROPion XL [Wellbutrin XL] 150 mg PO DAILY 01/07/18 03/14/18 History Albuterol Inhaler [Ventolin Hfa 2 puff INHALATION RT-Q4H PRN 03/14/18 03/14/18 History Inhaler] Ciprofloxacin HCl [Cipro] 500 mg PO BID 03/14/18 03/14/18 History Levothyroxine Sodium [Synthroid] 50 mcg PO DAILY 03/14/18 03/14/18 History predniSONE See Taper PO DIRECTED 03/14/18 03/15/18 History Allergies Allergy/AdvReac Type Severity Reaction Status Date / Time amoxicillin AdvReac Unknown Verified 03/14/18 20:28 Childhood erythromycin base AdvReac Unknown Verified 03/14/18 20:28 Childhood Physical Exam Vitals: Vital Signs Temp Pulse Pulse Resp BP BP Pulse Ox 03/15/18 15:38 64 20 03/15/18 15:29 62 20 03/15/18 15:00 66 20 82/55 97 03/15/18 14:30 70 20 95/56 98 03/15/18 14:00 73 20 82/50 98 03/15/18 13:30 81 20 90/52 98 03/15/18 13:00 98.2 F 86 20 82/49 96 03/15/18 12:30 80 20 86/50 96 03/15/18 12:00 79 20 88/53 97 03/15/18 11:56 78 03/15/18 11:45 76 03/15/18 11:30 78 14 94/61 96 03/15/18 11:00 81 20 83/49 97 03/15/18 10:30 82 20 85/53 96 03/15/18 10:00 84 20 85/52 96 03/15/18 09:30 92 20 94/42 96 03/15/18 09:00 103 H 17 98/54 94 L 03/15/18 08:30 83 20 84/51 97 03/15/18 08:00 97.8 F 82 20 93/56 97 03/15/18 07:50 90 03/15/18 07:38 90 03/15/18 07:30 81 20 89/58 98 03/15/18 07:10 81 20 87/53 97 03/15/18 07:00 83 20 84/51 97 03/15/18 06:50 83 20 84/51 97 03/15/18 06:40 84 20 86/52 97 03/15/18 06:30 85 20 86/52 97 03/15/18 06:20 85 20 90/52 97 03/15/18 06:10 88 20 90/52 97 03/15/18 06:00 84 20 90/56 97 03/15/18 05:50 87 20 90/56 97 12/27/18 05:40 82 20 87/52 98 1227/18 05:30 86 20 87/52 97 03/15/18 05:20 89 20 93/51 97 03/15/18 05:10 90 20 93/51 96 03/15/18 05:00 88 20 86/56 97 03/15/18 04:50 84 20 86/56 98 03/15/18 04:40 85 20 92/52 97 03/15/18 04:30 89 20 92/52 99 03/15/18 04:20 93 20 93/58 99 03/15/18 04:10 91 20 93/58 99 03/15/18 04:00 97.9 F 90 20 89/55 99 03/15/18 03:50 90 20 89/55 98 03/15/18 03:40 93 20 87/52 99 03/15/18 03:30 92 20 87/52 97 03/15/18 03:27 93 03/15/18 03:20 101 H 12 88/47 97 03/15/18 03:18 89 03/15/18 03:10 89 20 88/47 97 03/15/18 03:00 88 20 93/58 97 03/15/18 02:50 90 20 93/58 98 03/15/18 02:40 87 20 92/51 98 03/15/18 02:30 91 20 92/51 97 03/15/18 02:20 91 20 93/61 97 03/15/18 02:00 89 20 87/52 98 03/15/18 01:00 96 20 88/52 98 03/15/18 00:00 101 H 20 92/54 99 12/18 23:58 105 H 03/14/18 23:50 108 H 20 92/54 99 1226/18 23:43 106 H 03/14/18 23:40 105 H 20 96/57 99 12/18 23:30 108 H 20 94/47 99 03/14/18 23:20 106 H 20 105/54 98 03/14/18 23:05 115 H 15 94/74 12/18 22:55 115 H 14 109/61 100 03/14/18 22:45 114 H 24 98/67 100 03/14/18 22:15 97.0 F L 118 H 23 107/68 99 03/14/18 22:12 100.4 F H 110 H 20 84/47 99 03/14/18 22:00 114 H 26 H 109/57 100 03/14/18 21:54 120 H 03/14/18 21:45 122 H 30 H 131/64 100 03/14/18 21:42 118 H 03/14/18 21:19 122 H 24 97/60 100 03/14/18 21:15 109 H 24 106/79 100 03/14/18 21:00 121 H 36 H 112/75 96 03/14/18 20:31 100 32 H 148/75 99 Intake and Output 03/15/18 03/15/18 03/15/18 06:59 14:59 22:59 Intake Total 1988.426 3065.740 125 Output Total 250 170 25 Balance 665.181 6635.740 100 Intake: IV 975 1000 125 Sodium Chloride 0.9% 1, 975 1000 125 000 ml @ 125 mls/hr IV . Q8H [facility] Rx#:[id number] Intake, IV Titration 32.648 1238.740 Amount Levofloxacin 500Mg-D5w 100 Pmx 500 mg In Dextrose/ Water 1 100ml.bag @ 100 mls/hr IVPB Q24H [facility] Rx#: [id number] Norepinephrine 4 mg In 8.500 Sodium Chloride 0.9% 250 ml @ Titrate IV .Q0M [facility] Rx#:[id number] Propofol 1,000 mg In 4.29 Empty Bag 1 bag @ Titrate IV .Q0M [facility] Rx#: [id number] Propofol 1,000 mg In 28.358 130.240 Empty Bag 1 bag @ Titrate IV .Q0M [facility] Rx#: [id number] Sodium Chloride 0.9% 500 500 ml 500 ml @ 999 mls/hr IV .Q31M [facility] Rx#:[id number] Sodium Chloride 0.9% 500 500 ml 500 ml @ 999 mls/hr IV .Q31M [facility] Rx#:[id number] Tube Feeding 10 Output: Urine 250 170 25 Other: Voiding Method Indwelling Catheter Indwelling Catheter Weight 37.7 kg PHYSICAL EXAMINATION: GENERAL: Patient is intubated sedated RASS score of -2 assist-control ventilation thin built cachectic female HEENT: Pupils are round and equally reacting to light. EOMI. No scleral icterus. No conjunctival pallor. Normocephalic, atraumatic. No pharyngeal erythema. No thyromegaly. CARDIOVASCULAR: S1 and S2 present. No murmurs, rubs, or gallops. PULMONARY: Diffuse expiratory wheezing minimal air entry into bilateral lung duff. ABDOMEN: Soft, nontender, nondistended, normoactive bowel sounds. No palpable organomegaly. MUSCULOSKELETAL: No joint swelling or deformity. EXTREMITIES: No cyanosis, clubbing, or pedal edema. NEUROLOGICAL: Gross neurological examination did not reveal any focal deficits. SKIN: No rashes. Results CBC & Chem 7: 03/15/18 04:44 03/15/18 04:44 Labs: Abnormal Lab Results - Last 24 Hours (Table) 03/14/18 03/14/18 03/14/18 Range/Units 20:34 20:34 20:34 WBC 15.3 H (3.8-10.6) k/uL Hct 51.0 H (34.0-46.0) % MCV 101.2 H (80.0-100.0) fL MCHC 30.7 L (31.0-37.0) g/dL Plt Count 461 H (150-450) k/uL Neutrophils # 11.9 H (1.3-7.7) k/uL Lymphocytes # (1.0-4.8) k/uL APTT 20.1 L (22.0-30.0) sec ABG pCO2 (35-45) mmHg ABG pO2 (83-108) mmHg ABG HCO3 (21-25) mmol/L ABG Total CO2 (19-24) mmol/L ABG O2 Saturation (94-97) % Chloride (98-107) mmol/L Carbon Dioxide 34 H (22-30) mmol/L BUN (7-17) mg/dL Glucose 115 H (74-99) mg/dL POC Glucose (mg/dL) (75-99) mg/dL Magnesium (1.6-2.3) mg/dL Urine Appearance (Clear) Urine Protein (Negative) Urine Blood (Negative) Urine RBC (0-5) /hpf Urine WBC (0-5) /hpf Urine Bacteria (None) /hpf Hyaline Casts (0-2) /lpf Urine Mucus (None) /hpf 03/14/18 03/14/18 03/15/18 Range/Units 23:11 23:30 00:15 WBC (3.8-10.6) k/uL Hct (34.0-46.0) % MCV (80.0-100.0) fL MCHC (31.0-37.0) g/dL Plt Count (150-450) k/uL Neutrophils # (1.3-7.7) k/uL Lymphocytes # (1.0-4.8) k/uL APTT (22.0-30.0) sec ABG pCO2 52 H (35-45) mmHg ABG pO2 >400 H (83-108) mmHg ABG HCO3 29 H (21-25) mmol/L ABG Total CO2 31 H (19-24) mmol/L ABG O2 Saturation 99.8 H (94-97) % Chloride (98-107) mmol/L Carbon Dioxide (22-30) mmol/L BUN (7-17) mg/dL Glucose (74-99) mg/dL POC Glucose (mg/dL) 132 H (75-99) mg/dL Magnesium (1.6-2.3) mg/dL Urine Appearance Cloudy H (Clear) Urine Protein 1+ H (Negative) Urine Blood Moderate H (Negative) Urine RBC 56 H (0-5) /hpf Urine WBC 6 H (0-5) /hpf Urine Bacteria Rare H (None) /hpf Hyaline Casts 10 H (0-2) /lpf Urine Mucus Occasional H (None) /hpf 03/15/18 03/15/18 03/15/18 Range/Units 04:20 04:44 04:44 WBC 11.2 H (3.8-10.6) k/uL Hct (34.0-46.0) % MCV 103.2 H (80.0-100.0) fL MCHC 30.8 L (31.0-37.0) g/dL Plt Count (150-450) k/uL Neutrophils # 10.7 H (1.3-7.7) k/uL Lymphocytes # 0.3 L (1.0-4.8) k/uL APTT (22.0-30.0) sec ABG pCO2 49 H (35-45) mmHg ABG pO2 209 H (83-108) mmHg ABG HCO3 29 H (21-25) mmol/L ABG Total CO2 31 H (19-24) mmol/L ABG O2 Saturation 100.0 H (94-97) % Chloride 108 H (98-107) mmol/L Carbon Dioxide (22-30) mmol/L BUN 20 H (7-17) mg/dL Glucose 158 H (74-99) mg/dL POC Glucose (mg/dL) (75-99) mg/dL Magnesium 2.5 H (1.6-2.3) mg/dL Urine Appearance (Clear) Urine Protein (Negative) Urine Blood (Negative) Urine RBC (0-5) /hpf Urine WBC (0-5) /hpf Urine Bacteria (None) /hpf Hyaline Casts (0-2) /lpf Urine Mucus (None) /hpf 03/15/18 03/15/18 Range/Units 05:42 11:33 WBC (3.8-10.6) k/uL Hct (34.0-46.0) % MCV (80.0-100.0) fL MCHC (31.0-37.0) g/dL Plt Count (150-450) k/uL Neutrophils # (1.3-7.7) k/uL Lymphocytes # (1.0-4.8) k/uL APTT (22.0-30.0) sec ABG pCO2 (35-45) mmHg ABG pO2 (83-108) mmHg ABG HCO3 (21-25) mmol/L ABG Total CO2 (19-24) mmol/L ABG O2 Saturation (94-97) % Chloride (98-107) mmol/L Carbon Dioxide (22-30) mmol/L BUN (7-17) mg/dL Glucose (74-99) mg/dL POC Glucose (mg/dL) 151 H 155 H (75-99) mg/dL Magnesium (1.6-2.3) mg/dL Urine Appearance (Clear) Urine Protein (Negative) Urine Blood (Negative) Urine RBC (0-5) /hpf Urine WBC (0-5) /hpf Urine Bacteria (None) /hpf Hyaline Casts (0-2) /lpf Urine Mucus (None) /hpf Microbiology - Last 24 Hours (Table) 03/14/18 23:25 Gram Stain - Preliminary Sputum Sputum Culture - Preliminary 12/27/18 00:15 Urine Culture - Preliminary Urine,Catheterized Thrombosis Risk Factor Assmnt - Choose All That Apply Each Factor Represents 1 point: Abnormal pulmonary function (COPD), Age 41-60 years Thrombosis Risk Factor Assessment Total Risk Factor Score: 2 Thrombosis Risk Factor Assessment Level: Low Risk Assessment and Plan Plan: Acute hypercapnic respiratory failure secondary to COPD exacerbation patient is requiring ventilatory support continue systemic steroids initial treatments and the levofloxacin for bronchitis patient doesn't have any pneumonia on the chest x-ray -Hypothyroidism continue with levothyroxine hypotension secondary to propofol the patient is on Levothroid for that and patient is also significant for cc of IV normal saline. His urine output is around 20 mL which is reasonable for her weight of 37 kg -Tachycardia secondary to severe hypoxemia and hypercapnic respiratory failure Patient will need for DVT prophylaxis which we'll do with the subcutaneous heparin
[2018-03-15 17:26] LABS: Glucose,Whole Blood 154 mg/dL (75-99)
[2018-03-15 18:13] LABS: Glucose,Whole Blood 144 mg/dL (75-99)
[2018-03-15] MEDS: BUDESONIDE 1 MG/2 ML NEBU INHALATION SCH (19:31)
[2018-03-15] MEDS: FORMOTEROL FUMARATE 20 MCG/2 ML NEBU INHALATION SCH (19:44)
[2018-03-15] MEDS: NICOTINE 14MG/24HR PATCH TRANSDERM SCH (20:47)
[2018-03-15 23:59] LABS: Glucose,Whole Blood 183 mg/dL (75-99)
[2018-03-16] MEDS: INSULIN ASPART 100 UNIT/ML 1 ML 10 ML VIAL SQ SCH ×5 (00:11→23:54)
[2018-03-16] MEDS: methylPREDNISolone SOD SUCCI 125 MG/2 ML VIAL IV SCH ×5 (00:13→23:55)
[2018-03-16] MEDS: PROPOFOL 1,000 MG in EMPTY BAG 1 BAG IV SCH ×3 (00:32→19:42)
[2018-03-16] MEDS: NOREPINEPHRINE 4 MG in SODIUM CHLORIDE 0.9% 250 ML IV SCH (00:34)
[2018-03-16] MEDS: IPRATROPIUM-ALBUTEROL 3 ML NEB INHALATION SCH ×6 (03:04→23:08)
[2018-03-16 05:06] LABS: ABG Base Excess -2.5 mmol/L; ABG HCO3 24 mmol/L (21-25); ABG Oxygen Saturation 98.7 % (94-97); ABG PCO2 48 mmHg (35-45); ABG PH 7.31 (7.35-7.45); ABG PO2 113 mmHg (83-108); ABG TCO2 25 mmol/L (19-24)
[2018-03-16 05:21] LABS: Basophils % (A) 0 %; Eosinophils % (A) 0 %; HCT 40.8 % (34.0-46.0); Hypochromasia Moderate; Lymphocytes # (A) 0.4 k/uL (1.0-4.8); Lymphocytes % (A) 3 %; MCH 31.3 pg (25.0-35.0); MCHC 29.5 g/dL (31.0-37.0); MCV 106.1 fL (80.0-100.0); Macrocytosis Moderate; Mean Platelet Volume 7.4; Monocytes # (A) 0.6 k/uL (0-1.0); Monocytes % (A) 3 %; Neutrophils # (A) 15.4 k/uL (1.3-7.7); Neutrophils % (A) 93 %; Platelet Count 326 k/uL (150-450); RBC 3.84 m/uL (3.80-5.40); RDW 13.8 % (11.5-15.5); WBC 16.6 k/uL (3.8-10.6)
[2018-03-16 05:43] LABS: Anion Gap 7 mmol/L; Blood Urea Nitrogen 18 mg/dL (7-17); Calcium 8.9 mg/dL (8.4-10.2); Carbon Dioxide 20 mmol/L (22-30); Chloride 112 mmol/L (98-107); Glucose 165 mg/dL (74-99); Magnesium 2.3 mg/dL (1.6-2.3); Phosphorus 4.2 mg/dL (2.5-4.5); Potassium 4.6 mmol/L (3.5-5.1); Sodium 139 mmol/L (137-145)
[2018-03-16] MEDS: SODIUM CHLORIDE 0.9% 1,000 ML IV SCH ×3 (06:04→20:32)
[2018-03-16 06:10] LABS: Glucose,Whole Blood 171 mg/dL (75-99)
[2018-03-16] MEDS: LEVOTHYROXINE 50 MCG TAB PO SCH (06:29)
[2018-03-16] MEDS: MORPHINE SULFATE 2 MG/ML SYRINGE IVP PRN (06:41)
[2018-03-16] MEDS: BUDESONIDE 1 MG/2 ML NEBU INHALATION SCH ×2 (07:05→19:04)
[2018-03-16] MEDS: FORMOTEROL FUMARATE 20 MCG/2 ML NEBU INHALATION SCH ×2 (07:05→19:04)
[2018-03-16] MEDS: HEPARIN SODIUM,PORCINE 5,000 UNIT/ML 1 ML VIAL SQ SCH ×2 (08:00→20:32)
[2018-03-16] MEDS: buPROPion XL 150 MG TAB.ER.24H PO SCH (08:00)
[2018-03-16] MEDS: CHLORHEXIDINE GLUCONATE 15 ML CUP MUCOUS MEM SCH ×2 (08:00→20:31)
--- NOTE | 2018-03-16 08:04 | XR ---
EXAMINATION TYPE: XR chest 1V DATE OF EXAM: 03/16/2018 COMPARISON: 03/15/2018 INDICATION: Difficulty breathing TECHNIQUE: Single frontal view of the chest is obtained. FINDINGS: The heart size is normal. The pulmonary vasculature is normal. The lungs are clear. There is some hyperinflation. Endotracheal tube is present with tip above the alban. Nasogastric tub e transverses the thorax. IMPRESSION: 1. No acute pulmonary process. 2. Lines and catheters discussed above
[2018-03-16] MEDS ORDERED: FUROSEMIDE 10 MG/ML 2 ML VIAL IV ONE (08:07)
[2018-03-16] MEDS ORDERED: ONDANSETRON 4 MG/2 ML VIAL IVP PRN (08:18)
[2018-03-16] MEDS: PANTOPRAZOLE 40 MG/10 ML VIAL IV SCH (08:29)
[2018-03-16] MEDS ORDERED: CISATRACURIUM 2 MG/ML 5 ML VIAL IV ONE (09:07)
[2018-03-16] MEDS ORDERED: SUCCINYLCHOLINE CHLORIDE 100 MG/5 ML SYR IV ONE (09:09)
[2018-03-16] MEDS ORDERED: LORazepam 2 MG/ML INJ IV STA (09:09)
[2018-03-16] MEDS ORDERED: MORPHINE SULFATE 4 MG/ML SYRINGE IVP ONE (09:10)
--- NOTE | 2018-03-16 09:24 | PN ---
PROGRESS NOTE DATE OF SERVICE: 03/16/2018 This is a 57-year-old female well known to me. She has a history of severe COPD. The patient continues to smoke cigarettes and came into the emergency room with increasing shortness of breath, chest congestion, tightness, wheezing and cough. She was found to be in extremis there in the emergency department. She was intubated and mechanically ventilated by the ER doctor, Dr. Yuval Cuellar. She was transferred to the ICU for my care. Currently, the patient remains on the ventilator on the volume assist-control mode rate of 20, tidal volume 350, FiO2 35% to be turned down to 30%, PEEP of 5. Blood gases show a PO2 of 113, PACO2 of 48, pH of 0.3. The patient is getting a saline IV at 125 mL an hour, which will be turned on the 75 mL an hour. She is also on Diprivan at 40 mcg/kg per minute and Levophed or norepinephrine at 4 mcg/minute. She is getting Vital AF 1.2 at 20 with a goal of 31 mL an hour. I asked the nurse Eliana to give her Lasix 20 mg IV push before we attempt weaning sedation holiday and weaning trial. Her peak pressure is down and her peak plateau difference is improved. It is right around 7 or 8. This is much better. She is on all appropriate medications including short- acting beta agonist, short-acting muscarinic antagonist, long-acting beta agonist, inhaled corticosteroids, systemic corticosteroids and antibiotics. Her chest x-ray shows only changes of COPD without acute infiltrate. Her current vital signs are stable. They include a temperature which is 97.2, a heart rate which is 90, respiratory rate 21, blood pressure 118/63, mean 81 and saturations are in the mid to high 90s. Appears in no acute distress. Looks pretty comfortable. HEENT examination is grossly unremarkable. Mucous membranes are moist. No oral lesions. There is an orally placed endotracheal tube. Neck is supple. Full range of motion. No adenopathy. Cardiovascular examination reveals regular rhythm and rate. Heart rate about 90 beats per minute. S1, S2 normal. Heart sounds are distant. Lungs reveal diminished breath sounds. A few scattered rhonchi. No wheezes or crackles. Abdomen is soft. Bowel sounds are heard. Extremities are intact. No cyanosis, clubbing, or edema. Skin without rash. LABS: Reviewed. White count 16.6, hemoglobin 12, hematocrit 40.8, platelet count 326, 000. Blood gases have already mentioned including a PO2 of 113, pCO2 of 48, pH of 7.3. Sodium and potassium 139 and 4.6. Chloride is 112, CO2 is 20, anion gap is 7, BUN is 18, creatinine 0.48. Microbiologic studies including urine, blood and sputum are all negative thus far. CHEST X-RAY: Has been reviewed. Medications have been reviewed. ASSESSMENT: 1. Acute hypoxemic respiratory failure secondary to severe chronic obstructive pulmonary disease exacerbation in a patient with ongoing tobacco use, status post intubation and mechanical ventilation on 03/14/2018. 2. Severe stage IV chronic obstructive pulmonary disease. 3. Ongoing tobacco use and nicotine addiction. 4. Anxiety. 5. Depression. 6. Rule out urinary tract infection. PLAN: Will attempt extubation today. Will give the patient a sedation holiday. Will try spontaneous breathing trial. Additional recommendations and suggestions are forthcoming. She will get Lasix 20 mg IV push. Her IV fluids to be turned down to 75 mL an hour. Additional recommendations and suggestions are forthcoming. Prognosis is very guarded. Critical care time 36 minutes. MMODL / IJN: [id number] /
[2018-03-16] MEDS ORDERED: NOREPINEPHRINE 16 MG in SODIUM CHLORIDE 0.9% 250 ML IV SCH (09:30)
[2018-03-16 09:41] LABS: ABG Base Excess -0.7 mmol/L; ABG HCO3 26 mmol/L (21-25); ABG Oxygen Saturation 93.8 % (94-97); ABG PCO2 57 mmHg (35-45); ABG PH 7.27 (7.35-7.45); ABG PO2 72 mmHg (83-108); ABG TCO2 28 mmol/L (19-24)
--- NOTE | 2018-03-16 09:47 | XR ---
EXAMINATION TYPE: XR chest 1V portable DATE OF EXAM: 03/16/2018 COMPARISON: 03/16/2018 INDICATION: Post intubation and line placement TECHNIQUE: Single frontal view of the chest is obtained. FINDINGS: The heart size is normal. The pulmonary vasculature is normal. There is blunting left costophrenic angle. This could be due to the hyperinflation. A minimal left pl eural effusion is not excluded. There is hyperinflation. Endotracheal tube remains with the tip above the alban. Nasogastric tube transverses the thorax. The re is insertion of a left central venous catheter with the tip within the right atrium. No pneumothor ax is evident. IMPRESSION: 1. Placement of a right central venous catheter with the tip in the proximal right atrium. No pneumot horax is evident. 2 additional lines and catheters discussed above. 3. Hyperinflation. Minimal left pleural effusion is not excluded.
--- NOTE | 2018-03-16 10:42 | PCN ---
PROCEDURE NOTE PROCEDURE: Emergent intubation. PREOPERATIVE DIAGNOSIS: Respiratory failure. POSTOPERATIVE DIAGNOSIS: Respiratory failure. PROCEDURE: Patient was intubated with #7-1/2 endotracheal tube. We used a standard laryngoscope with with #3 Emily blade. The patient did receive 2 mg of Ativan before the procedure and also 4 mg of morphine before the procedure and during the procedure received 3 mL or 60 mg of succinylcholine. After the procedure she received 50 mg of Nimbex. The patient was successfully intubated. There was good color change on the qualitative capnography. There was good bilateral breath sounds. The tube was seen to be going through the glottic opening into the lung. There was no immediate complication. The patient was connected to the ventilator. The patient will be sedated. There was no immediate complication. A chest x-ray was ordered to check placement and to make sure there was no complication. MMODL / IJN: [id number] /
--- NOTE | 2018-03-16 10:48 | PCN ---
PROCEDURE NOTE PROCEDURE: Central line placement. TRIPLE LUMEN CATHETER PLACEMENT: Indication: Hemodynamic monitoring/Intravenous access. A time-out was completed verifying correct patient, procedure, site, positioning, and implant(s) or special equipment if applicable. The patient was placed in a dependent position appropriate for triple lumen catheter placement based on the vein to be cannulated. The patient's left neck was prepped and draped in sterile fashion. 1% Lidocaine was used to anesthetize the surrounding skin area. A triple lumen 9F Cordis catheter was introduced into the left internal jugular using Seldinger technique. The catheter was threaded smoothly over the guide wire and appropriate blood return was obtained. Each lumen of the catheter was evacuated of air and flushed with sterile saline. The catheter was then sutured in place to the skin and a sterile dressing applied. Perfusion to the extremity distal to the point of catheter insertion was checked and found to be adequate. There was no immediate complication. There was good blood return from all 3 ports. REASON FOR THE INSERTION: Administration of fluids and pressors. POSTOP DIAGNOSIS: Administration of fluids and pressors. Sterile dressing was applied by the nurse. The catheter was sutured in place. Chest x- ray was ordered to check placement. There was no immediate complication. MMODL / IJN: [id number] /
--- NOTE | 2018-03-16 10:54 | PCN ---
PROCEDURE NOTE PROCEDURE: Left radial arterial line placement. ARTERIAL LINE PLACEMENT: Indications: Hemodynamic monitoring. A time-out was completed verifying correct patient, procedure, site, positioning, and implant(s) or special equipment if applicable. Marcos's test was performed to ensure adequate perfusion. The patient's left wrist was prepped and draped in sterile fashion. 1% Lidocaine was used to anesthetize the area. An 18G Arrow arterial line was introduced into the left radial artery. The catheter was threaded over the guide wire and the needle was removed with appropriate pulsatile blood return. Blood loss was minimal. The catheter was then sutured in place to the skin and a sterile dressing applied. Perfusion to the extremity distal to the point of catheter insertion was checked and found to be adequate. The patient tolerated the procedure well and there were no complications. Left radial arterial line was placed without any complications, patient tolerated the procedure well. The line was sutured in place and sterile dressing was applied by the nurse. MMODL / IJN: [id number] /
[2018-03-16] MEDS: LEVOFLOXACIN 500MG-D5W PMX 500 MG in DEXTROSE/WATER 1 100ML.BAG IVPB SCH (10:58)
[2018-03-16 12:28] LABS: Glucose,Whole Blood 194 mg/dL (75-99)
--- NOTE | 2018-03-16 15:39 | P.PN ---
Subjective 57-year-old female admitted for COPD exacerbation patient was transiently extubated 2 days did not tolerate extubation has to be reintubated. Patient is still on pressor support still on ventilatory support overall prognosis is externally poor due to advanced COPD Objective - Vital Signs Vital signs: Vital Signs Temp 98.9 F 03/16/18 12:00 Pulse 86 03/16/18 15:16 Resp 20 03/16/18 15:00 BP 101/59 03/16/18 10:50 Pulse Ox 98 03/16/18 15:00 Intake & Output 03/15/18 03/16/18 03/16/18 18:59 06:59 18:59 Intake Total 2778.740 2048.592 1133.245 Output Total 538 611 3555 Balance 2533.740 1743.592 -286.755 Weight 37.7 kg 37.7 kg Intake: IV 1500 1500 790 0.9NS Pressure Bag 15 Sodium Chloride 0.9% 1, 1500 1500 250 000 ml @ 125 mls/hr IV . Q8H [facility] Rx#:[id number] Sodium Chloride 0.9% 1, 525 000 ml @ 75 mls/hr IV . [id number] [facility] Rx#:[id number] Intake, IV Titration 1238.740 358.592 273.245 Amount Levofloxacin 500Mg-D5w 100 100 Pmx 500 mg In Dextrose/ Water 1 100ml.bag @ 100 mls/hr IVPB Q24H [facility] Rx#: [id number] Norepinephrine 4 mg In 8.500 230.125 120.000 Sodium Chloride 0.9% 250 ml @ Titrate IV .Q0M [facility] Rx#:[id number] Propofol 1,000 mg In 130.240 128.467 53.245 Empty Bag 1 bag @ Titrate IV .Q0M [facility] Rx#: [id number] Sodium Chloride 0.9% 500 500 ml 500 ml @ 999 mls/hr IV .Q31M [facility] Rx#:[id number] Sodium Chloride 0.9% 500 500 ml 500 ml @ 999 mls/hr IV .Q31M [facility] Rx#:[id number] Tube Feeding 40 190 70 Output: Urine 466 194 2468 Other: Voiding Method Indwelling Catheter Indwelling Catheter Indwelling Catheter ABP, PAP, CO, CI - Last Documented Arterial Blood Pressure 97/56 - Exam PHYSICAL EXAMINATION: GENERAL: Patient is intubated sedated RASS score of -2 assist-control ventilation thin built cachectic female HEENT: Pupils are round and equally reacting to light. EOMI. No scleral icterus. No conjunctival pallor. Normocephalic, atraumatic. No pharyngeal erythema. No thyromegaly. CARDIOVASCULAR: S1 and S2 present. No murmurs, rubs, or gallops. PULMONARY: Diffuse expiratory wheezing minimal air entry into bilateral lung duff. ABDOMEN: Soft, nontender, nondistended, normoactive bowel sounds. No palpable organomegaly. MUSCULOSKELETAL: No joint swelling or deformity. EXTREMITIES: No cyanosis, clubbing, or pedal edema. NEUROLOGICAL: Gross neurological examination did not reveal any focal deficits. SKIN: No rashes. - Labs CBC & Chem 7: 03/16/18 04:14 03/16/18 04:14 Labs: Abnormal Lab Results - Last 24 Hours (Table) 03/15/18 03/15/18 03/15/18 Range/Units 17:15 18:01 23:47 WBC (3.8-10.6) k/uL MCV (80.0-100.0) fL MCHC (31.0-37.0) g/dL Neutrophils # (1.3-7.7) k/uL Lymphocytes # (1.0-4.8) k/uL ABG pH (7.35-7.45) ABG pCO2 (35-45) mmHg ABG pO2 (83-108) mmHg ABG HCO3 (21-25) mmol/L ABG Total CO2 (19-24) mmol/L ABG O2 Saturation (94-97) % Chloride (98-107) mmol/L Carbon Dioxide (22-30) mmol/L BUN (7-17) mg/dL Creatinine (0.52-1.04) mg/dL Glucose (74-99) mg/dL POC Glucose (mg/dL) 154 H 144 H 183 H (75-99) mg/dL 03/16/18 03/16/18 03/16/18 Range/Units 04:14 04:14 04:56 WBC 16.6 H (3.8-10.6) k/uL MCV 106.1 H (80.0-100.0) fL MCHC 29.5 L (31.0-37.0) g/dL Neutrophils # 15.4 H (1.3-7.7) k/uL Lymphocytes # 0.4 L (1.0-4.8) k/uL ABG pH 7.31 L (7.35-7.45) ABG pCO2 48 H (35-45) mmHg ABG pO2 113 H (83-108) mmHg ABG HCO3 (21-25) mmol/L ABG Total CO2 25 H (19-24) mmol/L ABG O2 Saturation 98.7 H (94-97) % Chloride 112 H (98-107) mmol/L Carbon Dioxide 20 L (22-30) mmol/L BUN 18 H (7-17) mg/dL Creatinine 0.48 L (0.52-1.04) mg/dL Glucose 165 H (74-99) mg/dL POC Glucose (mg/dL) (75-99) mg/dL 03/16/18 03/16/18 03/16/18 Range/Units 05:59 09:36 12:16 WBC (3.8-10.6) k/uL MCV (80.0-100.0) fL MCHC (31.0-37.0) g/dL Neutrophils # (1.3-7.7) k/uL Lymphocytes # (1.0-4.8) k/uL ABG pH 7.27 L (7.35-7.45) ABG pCO2 57 H (35-45) mmHg ABG pO2 72 L (83-108) mmHg ABG HCO3 26 H (21-25) mmol/L ABG Total CO2 28 H (19-24) mmol/L ABG O2 Saturation 93.8 L (94-97) % Chloride (98-107) mmol/L Carbon Dioxide (22-30) mmol/L BUN (7-17) mg/dL Creatinine (0.52-1.04) mg/dL Glucose (74-99) mg/dL POC Glucose (mg/dL) 171 H 194 H (75-99) mg/dL Microbiology - Last 24 Hours (Table) 03/15/18 00:15 Urine Culture - Final Urine,Catheterized 03/14/18 20:34 Blood Culture - Preliminary Blood No Growth after 24 hours 03/14/18 23:25 Gram Stain - Preliminary Sputum Sputum Culture - Preliminary Assessment and Plan Plan: Acute hypercapnic respiratory failure secondary to COPD exacerbation patient is requiring ventilatory support continue systemic steroids initial treatments and the levofloxacin for bronchitis patient doesn't have any pneumonia on the chest x-ray. Patient is on levofloxacin for severe bronchitis -Hypothyroidism continue with levothyroxine hypotension secondary to propofol the patient is on levo fed for that and patient is also significant for cc of IV normal saline. S -Tachycardia secondary to severe hypoxemia and hypercapnic respiratory failure Patient will need for DVT prophylaxis which we'll do with the subcutaneous heparin Overall prognosis is extremely poor if there is no significant clinical improvement family will decide about hospice at the time
[2018-03-16 18:38] LABS: Glucose,Whole Blood 136 mg/dL (75-99)
[2018-03-16] MEDS: NICOTINE 14MG/24HR PATCH TRANSDERM SCH (20:34)
[2018-03-16 23:50] LABS: Glucose,Whole Blood 154 mg/dL (75-99)
[2018-03-17] MEDS: IPRATROPIUM-ALBUTEROL 3 ML NEB INHALATION SCH ×2 (03:16→07:08)
[2018-03-17] MEDS: PROPOFOL 1,000 MG in EMPTY BAG 1 BAG IV SCH (03:20)
[2018-03-17 05:14] LABS: ABG Base Excess 2.7 mmol/L; ABG HCO3 28 mmol/L (21-25); ABG Oxygen Saturation 97.3 % (94-97); ABG PCO2 48 mmHg (35-45); ABG PH 7.38 (7.35-7.45); ABG PO2 86 mmHg (83-108); ABG TCO2 29 mmol/L (19-24)
[2018-03-17 06:01] LABS: Glucose,Whole Blood 166 mg/dL (75-99)
[2018-03-17] MEDS: INSULIN ASPART 100 UNIT/ML 1 ML 10 ML VIAL SQ SCH (06:56)
[2018-03-17] MEDS: LEVOTHYROXINE 50 MCG TAB PO SCH (06:57)
[2018-03-17] MEDS: methylPREDNISolone SOD SUCCI 125 MG/2 ML VIAL IV SCH (06:57)
[2018-03-17] MEDS: BUDESONIDE 1 MG/2 ML NEBU INHALATION SCH (07:08)
[2018-03-17] MEDS: FORMOTEROL FUMARATE 20 MCG/2 ML NEBU INHALATION SCH (07:08)
[2018-03-17] MEDS: CHLORHEXIDINE GLUCONATE 15 ML CUP MUCOUS MEM SCH (08:09)
[2018-03-17] MEDS: HEPARIN SODIUM,PORCINE 5,000 UNIT/ML 1 ML VIAL SQ SCH (08:09)
[2018-03-17] MEDS: buPROPion XL 150 MG TAB.ER.24H PO SCH (08:09)
[2018-03-17] MEDS: LEVOFLOXACIN 500MG-D5W PMX 500 MG in DEXTROSE/WATER 1 100ML.BAG IVPB SCH (08:10)
[2018-03-17] MEDS: PANTOPRAZOLE 40 MG/10 ML VIAL IV SCH (08:10)
[2018-03-17] MEDS ORDERED: MORPHINE SULFATE 2 MG/ML SYRINGE IV PRN (08:11)
[2018-03-17] MEDS ORDERED: LORazepam 2 MG/ML INJ IV PRN (08:11)
[2018-03-17] MEDS ORDERED: SODIUM CHLORIDE 0.9% 1,000 ML IV SCH (08:15)
[2018-03-17 08:22] VITALS: TEMP 98.4
[2018-03-17] MEDS: MORPHINE SULFATE (100 MG/2 ML) 100 MG in SODIUM CHLORIDE 0.9% 100 ML IV SCH ×3 (08:48→18:28)
[2018-03-17] MEDS: ATROPINE OPHTH SOLN 1% 5ML BTL SUBLINGUAL PRN ×2 (09:21→22:18)
[2018-03-17] MEDS: MORPHINE SULFATE 2 MG/ML SYRINGE IVP PRN (09:58)
[2018-03-17 12:42] VITALS: BP 115/66
--- NOTE | 2018-03-17 19:16 | PN ---
PROGRESS NOTE DATE OF SERVE: 03/17/2018 I am covering for Dr. Fleming. This 57-year-old woman who was admitted with severe end stage COPD is on comfort measures at this time. Dr. Salinas saw the patient and discussed the case with the family and the patient is being closely monitored at this time. At this time the patient is sedated. PHYSICAL EXAM: Pulse is 112, blood pressure 101/50, respiration rate 17, temperature normal, pulse ox 62 percent on 2 L. HEENT: Conjunctivae normal. Oral mucosa moist. CARDIOVASCULAR: S1, S2. RESPIRATORY: Diminished breath sounds at the bases. Scattered rhonchi. NERVOUS SYSTEM: Patient is sedated. LABS: Reviewed. ASSESSMENT: 1. Chronic obstructive pulmonary disease acute exacerbation with acute hypoxic hypercarbic respiratory failure status post mechanical ventilation. 2. Hypothyroidism. 3. Tachycardia. 4. History of asthma. 5. NO CODE, NO CPR, NO VENT. 6. Comfort measures. RECOMMENDATIONS: This 57-year-old woman who presented with multiple medical issues, at this time I recommend to continue comfort measures. Prognosis is extremely guarded because of multiple complex medical issues. Closely follow with Dr. Salinas. Guarded prognosis. Further recommendations to follow. MMODL / IJN: [id number] /
[2018-03-17 23:40] VITALS: PULSE 91; RESP 11
== END 2018-03-17 23:33 | disposition expired | DRG 208 ==
LOC: EC 20:25 → 2SICU 21:36
PROVIDERS: ADMIT Internal Medicine; ATTEND Internal Medicine
PROC: 0BH18EZ Insertion of Endotracheal Airway into Trachea, Via Natural or Artificial Opening Endoscopic (ICD-10-PCS; principal; 2018-03-14)
PROC: 5A1945Z Respiratory Ventilation, 24-96 Consecutive Hours (ICD-10-PCS; principal; 2018-03-14)
PROC: 4A133B1 Monitoring of Arterial Pressure, Peripheral, Percutaneous Approach (ICD-10-PCS; 2018-03-16)
PROC: 04HY32Z Insertion of Monitoring Device into Lower Artery, Percutaneous Approach (ICD-10-PCS; 2018-03-16)
PROC: 4A133J1 Monitoring of Arterial Pulse, Peripheral, Percutaneous Approach (ICD-10-PCS; 2018-03-16)
PROC: 0BH18EZ Insertion of Endotracheal Airway into Trachea, Via Natural or Artificial Opening Endoscopic (ICD-10-PCS; 2018-03-16)
PROC: 05HN33Z Insertion of Infusion Device into Left Internal Jugular Vein, Percutaneous Approach (ICD-10-PCS; 2018-03-16)
DX: J96.02 Acute respiratory failure with hypercapnia (principal); J44.1 Chronic obstructive pulmonary disease with (acute) exacerbation; E87.2 Acidosis; R64 Cachexia; Z68.1 Body mass index [BMI] 19.9 or less, adult; J44.0 Chronic obstructive pulmonary disease with (acute) lower respiratory infection; N39.0 Urinary tract infection, site not specified; J96.01 Acute respiratory failure with hypoxia; E03.9 Hypothyroidism, unspecified; E86.0 Dehydration; F17.210 Nicotine dependence, cigarettes, uncomplicated; F32.9 Major depressive disorder, single episode, unspecified; F41.9 Anxiety disorder, unspecified; I95.2 Hypotension due to drugs; T41.295A Adverse effect of other general anesthetics, initial encounter; J20.9 Acute bronchitis, unspecified; Z51.5 Encounter for palliative care; Z79.890 Hormone replacement therapy; Z82.49 Family history of ischemic heart disease and other diseases of the circulatory system; Z90.710 Acquired absence of both cervix and uterus; Z79.52 Long term (current) use of systemic steroids; Z79.899 Other long term (current) drug therapy; Z88.1 Allergy status to other antibiotic agents; Z66 Do not resuscitate
CPT/HCPCS: 31500; 36415; 36600; 51702; 71045; 80048; 80053; 81001; 82550; 82553; 82805; 83735; 83880; 84100; 84484; 85025; 85379; 85610; 85730; 87040; 87070; 87086; 87205; 93005; 94002; 94003; 94640; 96365; 96375; 99291